=== PATIENT | female | born 1950 | race Caucasian/White ===

== ENCOUNTER 2018-07-06 18:18 | Inpatient (IN) | payer MEDICARE, MEDICAID ==
[2018-07-06] VITALS (11 sets, daily range): BP systolic 141–174; BP diastolic 62–87
[~2018-07-06] VITALS: Ht 170.2 cm; Wt 73.9 kg
--- NOTE | 2018-07-06 18:18 | NUR ---
ARRIVAL EDUARD TO ER 3 VIA WC, STATES THAT SHE WAS DRIVING HOME WITH HER AND THAT SHE BECAME SHORT OF BREATH AND STARTED HAVING RESP FAILURE ON THE WAY HOME. PATIENT CO OF PAIN UPON INSPIRATION. ASSESSMENT COMPLETED, CONNECTED TO ALL MONITORS, EDGE BONDER IN PLACE. MD AT BEDSIDE.
[2018-07-06] MEDS ORDERED: DUONEB 0.5 MG-3 MG/3 ML SOLN IH ONE (18:26)
[2018-07-06] MEDS ORDERED: DUONEB 0.5 MG-3 MG/3 ML SOLN IH STA (18:28)
[2018-07-06] MEDS ORDERED: DECADRON IV STA (18:28)
--- NOTE | 2018-07-06 18:33 | PCM.EKG ---
[facility] Test Date: 2018-07-06 Test Time: 18:26:22 Pat Name: ELIER WAYNE Department: Room: 339 Gender: F Ladle Builder: RT : 1950 Requested By: TREVOR WHITLOCK Order Number: [id number] Reading MD: Trevor Whitlock Measurements Intervals [place] Rate: 127 P: 76 IN: 162 QRS: 91 QRSD: 68 T: 80 QT: 268 QTc: 389 Interpretive Statements Sinus tachycardia Otherwise normal ECG No previous ECG available for comparison Electronically Signed On 07-12-2018 19:37:37 CDT by Trevor Whitlock Please click the below link to view image of tracing.
--- NOTE | 2018-07-06 18:43 | ER.PDOC ---
General Chief Complaint: Requesting Medical Care Stated Complaint: DIFF BREATHING Time seen by MD: 18:23 Source: patient, family Exam Limitations: no limitations History of Present Illness Initial Comments Pt with SOB since 3 days ago, with +cough and prod. sputum. No leg swelling. +chest pain/tightness as well. Severity: moderate Activities at Onset: activity/exertion Prior Episodes/Possible Cause: frequent episodes Modifying Factors: worse with activity; improves with albuterol nebulizer; worse with coughing; improves with oxygen Associated Symptoms: chest pain, cough, edema, fever, leg/calf pain, ligh theadedness, wheezing Prior symptoms/Treatment: Similar symptoms previous; No Recenly Seen Home Meds Reported Medications Metformin Hcl (METFORMIN HCL) 500 Mg Tablet, 500 MG PO BID, TABLET 07/06/18 Oxybutynin Chloride (OXYBUTYNIN CHLORIDE ER) 15 Mg Tab.er.24, 15 MG PO DAILY24 07/06/18 Simvastatin (SIMVASTATIN) 40 Mg Tablet, 40 MG PO DAILY24, TABLET 07/06/18 Losartan Potassium (LOSARTAN POTASSIUM) 25 Mg Tablet, 25 MG PO DAILY24, TABLET 07/06/18 Famotidine (FAMOTIDINE) 40 Mg Tablet, 40 MG PO BID, TABLET 07/06/18 Levothyroxine Sodium (LEVOTHYROXINE SODIUM) 75 Mcg Tablet, 75 MCG PO DAILY24, TABLET 07/06/18 Nifedipine (NIFEDIPINE ER) 30 Mg Tab.er.24, 30 MG PO DAILY24 07/06/18 Clopidogrel Bisulfate (PLAVIX) 75 Mg Tablet, 75 MG PO DAILY24, TABLET 07/06/18 Past Medical History Medical History: COPD Review of Systems Constitutional: other (fatigue) EENTM: no symptoms reported Respiratory: see HPI, cough, shortness of breath, wheezing Cardiovascular: chest pain (tightness, entire chest) Gastrointestinal: no symptoms reported Genitourinary: no symptoms reported Musculoskeletal: no symptoms reported Skin: no symptoms reported All Other Systems: Reviewed and Negative Physical Exam General Appearance: Mild Distress HEENT: PERRL/EOMI, Normal ENT Inspection, TMs Normal, Pharynx Normal Neck: Non-Tender, Full Range of Motion, Supple, Normal Inspection Respiratory: decreased breath sounds (b/l, mild), wheezing (b/l) Cardiovascular: Normal Peripheral Pulses, Tachycardia Rectal: Deferred Extremities: Normal Range of Motion Neurologic/Psychiatric: No Motor/Sensory Deficits, Alert Skin: Normal Color (no cyanosis) Results/Orders Results/Orders Orders - TREVOR WHITLOCK DO Arterial Blood Gas (07/06/18 18:28) Ipratropium/Albuterol Sulfate (Duoneb 0. (07/06/18 18:28) Cbc With Auto Diff (07/06/18 18:28) Comprehensive Metabolic Panel (07/06/18 18:28) Xr Chest 1v (07/06/18 18:28) Ekg-Routine (07/06/18 18:28) Troponin I (07/06/18 18:) Probnp B-Type Lacing String Cutter (07/06/18 18:28) Dexamethasone Sod Phosphate (Decadron) (07/06/18 18:28) Influenza A&B (07/06/18 18:) Blood Culture (07/06/18 18:) Dexamethasone Sod Phosphate (Decadron) (07/06/18 19:09) Cta Chest (07/06/18 19:25) Routine Vital Signs (07/06/18 19:42) Bedrest (07/06/18 19:42) Npo-Dietary Req Nothing By Mo. (07/07/18 Breakfast) Intake & Output (07/06/18 19:42) Magnesium (07/06/18:42) Thyroid Stimulating Horm(Ml) (07/06/18 19:42) Cbc With Auto Diff (07/07/18 05:00) Comprehensive Metabolic Panel (07/07/18 05:00) Albuterol Sulfate (Ventolin) (07/06/18 20:00) Ipratropium [place] (Atrovent) (07/06/18 20:00) Admit Orders (07/06/18 19:42) Vital Signs Date Time Temp Pulse Resp B/P (MAP) Pulse Ox O2 Delivery O2 Flow Rate FiO2 07/06/18 19:13 112 28 95 Bi-pap 45 07/06/18 19:11 102 38 95 07/06/18 19:11 102 38 95 07/06/18 18:56 98.0 102 38 152/66 (94) 60 Room Air 98.0 07/06/18 18:51 98.0 102 28 98.0 07/06/18 18:51 98.4 120 72 60 Room Air 98.4 07/06/18 18:47 121 29 95 S/T 45 Administered Medications Medications (Trade) Dose Ordered Sig/Sravanthi Route PRN Reason Start Time Stop Time Status Last Admin Dose Admin Albuterol/ Ipratropium (Duoneb 0.5 Mg-3 Mg/3 ml Soln) 6 ml STAT STAT IH 07/06/18 18:28 07/06/18 18:33 DC 07/06/18 18:59 6 ML Dexamethasone Sodium Phosphate (Decadron) 8 mg STAT STAT IV 07/06/18 18:28 07/06/18 18:33 DC 07/06/18 19:27 8 MG Laboratory Tests Test 07/06/18 18:28 07/06/18 18:40 07/06/18 18:48 07/06/18 19:26 Blood Gas Sample Site RT RADIAL ARTERY Blood pH 7.350 (7.350-7.450) Blood Gas PCO2 53.7 mmHg (35.0-45.0) H Blood Gas PO2 125.0 mmHg (80.0-100.0) H Blood Gas HCO3 29.0 mmol/L (22.0-26.0) H Blood Gas Base Excess 2.4 mmol/L (-2.0-2.0) H Bernardino Test POSITIVE Arterial Blood Oxygen Saturation 97.8 % (94.0-97.00) H Deoxyhemoglobin 2.2 % (0.0-5.0) Carboxyhemoglobin 0.9 % (0.0-3.9) Methemoglobin 0.1 % (0.00-5.0) Total Hemoglobin 12.9 % (12.0-17.8) Total Oxygen Concentration 17.7 % (13.5-17.5) H Lactic Acid (Blood Gas) 0.7 mmol/1 (0.50-2.0) Blood Gas Temperature 37 Oxygen Delivery Method AEROSOL MASK FiO2 80.0 % (20-101) Bicarbonate 30.6 mmol/L (23-27) H White Blood Count 8.5 10^3/uL (4.5-11.0) Red Blood Count 4.30 10^6/uL (4.00-5.20) Hemoglobin 12.5 g/dL (12.0-15.0) Hematocrit 36.8 % (36.0-46.0) Mean Corpuscular Volume 85.6 fL (78-100) Mean Corpuscular Hemoglobin 29.1 pg (26-34) Mean Corpuscular Hemoglobin Concent 34.0 g/dL (33-37) Red Cell Distribution Width 13.2 % (11.5-14.5) Platelet Count 286 10^3/uL (150-400) Mean Platelet Volume 9.0 fL (7.8-11.0) Neutrophils (%) (Auto) 75.8 % (41.0-85.0) Lymphocytes (%) (Auto) 13.4 % (24.0-44.0) L Monocytes (%) (Auto) 9.8 % (5.0-12.0) Neutrophils # (Auto) 6.4 10^3/uL (1.8-7.7) Lymphocytes # (Auto) 1.1 10^3/uL (1.0-4.8) Monocytes # (Auto) 0.8 10^3/uL (0.3-0.8) Absolute Immature Granulocyte (auto 0.02 10^3 u/L (0-2) Immature Granulocytes % 0.20 % (0.00-0.50) Eosinophils % 0.6 % (0.0-5.0) Basophils % 0.2 % (0.0-0.2) Basophils # 0.0 10^3/uL (0.0-0.1) Eosinophil Count 0.1 10^3/uL (0.0-0.2) Sodium Level 126 mmol/L (132-145) L Potassium Level 4.6 mmol/L (3.6-5.2) Chloride Level 88.0 mmol/L (96-109) L Carbon Dioxide Level 29.1 mmol/L (20.0-32) Anion Gap 13.5 Blood Urea Nitrogen 11 mg/dL (7-18) Creatinine 0.72 mg/dL (0.59-1.40) Estimated GFR () 97.5 (>/=60) BUN/Creatinine Ratio 15.0 Glucose Level 129 mg/dL (70-110) H Calcium Level 9.5 mg/dL (8.4-10.5) Total Bilirubin 0.5 mg/dL (0.2-1.0) Aspartate Amino Transferase (AST) 30 U/L (0-35) Alanine Aminotransferase (ALT) 33 U/L (12-78) Alkaline Phosphatase 117 U/L (50-136) Troponin I < 0.02 ng/mL (0.00-0.05) Pro-B-Type Natriuretic Peptide 170 pg/mL (0-125) H Total Protein 7.8 g/dL (6.4-8.2) Albumin 3.6 g/dL (3.4-5.0) Globulin 4.2 Magnesium Level 1.3 mg/dL (1.8-2.4) L Thyroid Stimulating Hormone (TSH) 1.482 mIU/mL (0.358-3.740) Differential Total Cells Counted 100 #CELLS Segmented Neutrophils 77 % (31-76) H Band Neutrophils % (2-6) Lymphocytes 14 % (25-36) L Monocytes 9 % (3-9) Platelet Morphology NORMAL Progress Progress Pt's ABG non-scidotic, but with elevated pCO2, question chronic compensated resp acidosis. Pt doing better after BiPap and nebs. Still has some wheeze, but air movement is improved. 1943 - Spoke with Dr. Chacko, will admit to ICU and keep on BiPap, he will see her this evening. EKG/XRAY/CT/US EKG: rhythm (sinus tach rate 127), no ST T wave changes EKG Comments: sinus tach, no ST elevation, rate related changes present XRAY: chest Departure Time of Disposition: 19:45 Disposition: 09 ADMITTED INPATIENT Impression: Primary Impression: COPD with exacerbation Additional Impression: Respiratory failure with hypoxia Condition: Stable Referrals: PCP,UNKNOWN (PCP) PRIMARY CARE PROVIDER Duration or Time Spent with Pa: 60 Critical Care Note Total Time (mins): 35 Comments Time for evaluation of respiratory failure, orders, reviewing results and response to treatment. Does not include any separate billable procedures. Problem Qualifiers Additional Impression: Respiratory failure with hypoxia Chronicity: acute Qualified Codes: J96.01 - Acute respiratory failure with hypoxia TREVOR WHITLOCK DO July 06, 2018 18:43
[2018-07-06 18:51] LABS: ABG PCO2 53.7 mmHg (35.0-45.0); BE(B) 2.4 mmol/L (-2.0-2.0)
[2018-07-06 18:54] LABS: BASOPHIL % 0.2 % (0.0-0.2); EOSINOPHIL # 0.1 10^3/uL (0.0-0.2); EOSINOPHIL % 0.6 % (0.0-5.0); HEMOGLOBIN 12.5 g/dL (12.0-15.0); LYMPHOCYTES # 1.1 10^3/uL (1.0-4.8); LYMPHOCYTES % 13.4 % (24.0-44.0); MEAN CELL HGB 29.1 pg (26-34); MEAN CORP VOLUME 85.6 fL (78-100); MONOCYTES # 0.8 10^3/uL (0.3-0.8); MONOCYTES % 9.8 % (5.0-12.0); NEUTROPHIL # 6.4 10^3/uL (1.8-7.7); NEUTROPHILS % 75.8 % (41.0-85.0); PLATELET COUNT 286 10^3/uL (150-400); RED CELL DISTRIBUTION WIDTH 13.2 % (11.5-14.5); WHITE BLOOD CELL 8.5 10^3/uL (4.5-11.0)
[2018-07-06] MEDS ORDERED: DECADRON ONE (19:09)
[2018-07-06 19:17] LABS: ALANINE AMINOTRANSFERASE(ML) 33 U/L (12-78); ALKALINE PHOSPHATASE 117 U/L (50-136); ASPARTATE AMINO TRANSFERASE 30 U/L (0-35); CALCIUM 9.5 mg/dL (8.4-10.5); CARBON DIOXIDE 29.1 mmol/L (20.0-32); GLUCOSE 129 mg/dL (70-110)
--- NOTE | 2018-07-06 19:18 | DIREP ---
PROCEDURE:CHEST 1 VIEW COMPARISON:None. INDICATIONS:dyspnea FINDINGS: LUNGS/PLEURA:Hazy opacity in the right lung base may represent atelectasis or early infiltrate. No effusions. No pneumothorax. VASCULATURE:Unremarkable pulmonary vasculature. CARDIAC:No cardiac silhouette abnormality or cardiomegaly. MEDIASTINUM:No visible mass or adenopathy. BONES:No fracture or visible bony lesion. OTHER:Right chest port. Right pulmonary apex not completely included within the field of view. CONCLUSION: 1. Hazy opacity in the right lung base may represent atelectasis or early infiltrate. Dictated by: Diane Christy MD on 07/06/2018 at 07:16 PM
[2018-07-06 19:26] LABS: SEGMENTED NEUTROPHILS 77 % (31-76)
[2018-07-06 19:27] LABS: LYMPHOCYTE 14 % (25-36); MONOCYTE 9 % (3-9)
--- NOTE | 2018-07-06 19:40 | NUR ---
HOSPITALIST EDP ON PHONE WITH DR. LEW
[2018-07-06] MEDS ORDERED: CLOP75TA52 PO (19:46)
[2018-07-06] MEDS ORDERED: LEVO75TA6 PO (19:46)
[2018-07-06] MEDS ORDERED: NIFE30TA17 PO (19:46)
[2018-07-06] MEDS ORDERED: SIMV40TA3 PO (19:46)
[2018-07-06] MEDS ORDERED: FAMO40TA4 PO (19:46)
[2018-07-06] MEDS ORDERED: LOSA25TA12 PO (19:46)
[2018-07-06] MEDS ORDERED: OXYB15TA PO (19:46)
[2018-07-06] MEDS ORDERED: METF500T17 PO (19:47)
[2018-07-06] MEDS ORDERED: VENTOLIN IH PRN (20:00)
[2018-07-06] MEDS ORDERED: ATROVENT IH PRN (20:00)
[2018-07-06] MEDS ORDERED: LEVAQUIN 150 ML IV ONE ×2 (20:30→20:36)
--- NOTE | 2018-07-06 20:53 | NUR ---
TELEPHONE REPORT RECEIVED FROM MARCOS DILLON. PT STILL IN ER AT THIS TIME.
--- NOTE | 2018-07-06 21:40 | NUR ---
ARRIVAL: PT ARRIVED FROM ER/RADIOLOGY ACCOMPANIED BY RT JOEL WITH WHEELCHAIR. PT ABLE TO STAND UP AND TRANSFER TO BED INDEPENDENTLY. PT ORIENTED TO ICU ENVIRONMENT AND CONNECTED TO HEART MONITOR, NIBP AND PULSE OX BY BRO Camejo RN. PT ON HIGH CON MASK @ 15LPM. PT IS TACHYCARDIC. ALL OTHER VSS AND WNL. PT DENIES PAIN. CALL LIGHT AND TABLE WITHIN REACH. BED IN LOW POSITION, LOCKED, HOB ELEVATED AND SIDE RAILS UP X2. WILL CONTINUE TO MONITOR.
--- NOTE | 2018-07-06 22:30 | NUR ---
JOEL - RT AT BEDSIDE. PT REMOVED FROM HIGH CON MASK AND PLACED ON NASAL CANULA @ 3LPM. O2 SATS - 99%.
--- NOTE | 2018-07-06 22:43 | DIREP ---
PROCEDURE:CTA CHEST and abdomen pelvis venogram COMPARISON:None. INDICATIONS:dyspnea, suspected PE TECHNIQUE:Post contrast axial images through the chest, abdomen, pelvis and thighs with multiplanar MIP/3D reconstructions. FINDINGS: PULMONARY ARTERIES:Patent. LUNGS:Pulmonary nodule in the left lower lobe measuring 1 cm. Nodular opacity in the right middle lobe inferiorly measuring 1 cm, somewhat geographic in shape which may suggest nodule with adjacent atelectasis. Scattered tree-in-bud opacities posteriorly in the right lower lobe, to a lesser degree in the left lower lobe. Additional pulmonary nodule in the right lower lobe measuring 5 mm. Possible nodule in the left upper lobe measuring 4 mm. CARDIAC:Normal size heart and normal pulmonary vascularity. RV:LV ratio (norm <0.9): Not applicable in the absence of pulmonary embolism. THYROID:Normal. THORACIC AORTA:Small calcified and noncalcified atherosclerotic plaques. No aneurysm dissection. MEDIASTINUM:Mildly enlarged subcarinal lymph node measuring 1.2 cm. PLEURA:Normal. BONES:Normal. OTHER:Sigmoid diverticulosis without CT evidence of diverticulitis. CT imaging of the abdomen, pelvis and thighs with equivocal contrast opacification of the veins. If there is clinical suspicion for DVT, please consider ultrasound. CONCLUSION: 1. No pulmonary embolism identified. 2. Tree-in-bud opacities in the lungs, may suggest infective bronchiolitis. 3. Multiple pulmonary nodules. After acute illness has been addressed follow-up chest CT should be considered, within 3 months. Dictated by: Diane Christy MD on 07/06/2018 at 10:31 PM
[2018-07-06] MEDS ORDERED: ZOFRAN IV PRN (23:00)
[2018-07-06] MEDS ORDERED: LACTATED RINGERS 1,000 ML IV SCH (23:00)
[2018-07-06] MEDS ORDERED: RESTORIL PO STA (23:04)
--- NOTE | 2018-07-06 23:16 | PCM.HP ---
History of Present Illness Reason for Visit: Dyspnea x 3-4 days History of Present Illness Patient is a 68 F PMH of COPD, HTN, DM, HLD, Hypothyroidism, hx of TIA, and Hx of Colon cancer presents with acute shortness of breath worsening for 3-4 days. Patient symptoms became so severe she came to ER. In ER, her O2 sats were high 60s to low 70s. Patient was treated with Bipap, Nebs, IV abx, and IV steroids with improvement in symptoms. Patient was admitted to ICU for close monitoring. In ICU, patient is on NC and no longer requiring Bipap for respiratory support. She is feeling much better. Her labs and imaging were reviewed. She denied complaints during my evaluation and was comfortable on O2 support via NC. Patient has been traveling from [place] to [place] and now to [place] to visit family and there was concern for possible PE. Patient CTA is still pending. Patient denies chest pain, fever, chills, nausea, vomiting, or any other concerning symptoms. Past Medical History Cardiac: HTN, Hyperlipidemia, Other (Hx of TIAs) Pulmonary: COPD Heme/Onc: Cancer (Colon) Endocrine: Diabetes, Hypothyroidism Past Surgical History: Arthroscopy (bilateral knees) Past Social History Smoke: Quit Alcohol: none Drugs: None Lives: Alone Travel Hx EBOLA RISK:Travel to/contact w: No Is pt experiencing any Ebola s: No Review of Systems Constitutional: No: Fever, Chills Eyes: No: Conjunctivae inflammation, Eyelid inflammation ENT: No: Nose discharge, Nose congestion Respiratory: Cough, Shortness of breath, SOB with excertion, Wheezing Cardiovascular: No: Chest Pain, Palpitations, Edema Gastrointestinal: No: Nausea, Vomiting, Abdominal Pain Genitourinary: No Hematuria, No Retention Musculoskeletal: No: neck pain, back pain Skin: No: Rash, Lesions, Jaundice, Bruising Neurological: No: Weakness, Numbness, Incoordination, Change in speech, Confusion, Seizures Allergies: Coded Allergies: morphine (Verified Allergy, Intermediate, 07/06/18) Scheduled Clopidogrel Bisulfate (Plavix), 75 MG PO DAILY24, (Reported) Famotidine (Famotidine), 40 MG PO BID, (Reported) Levothyroxine Sodium (Levothyroxine Sodium), 75 MCG PO DAILY24, (Reported) Losartan Potassium (Losartan Potassium), 25 MG PO DAILY24, (Reported) Metformin Hcl (Metformin Hcl), 500 MG PO BID, (Reported) Nifedipine (Nifedipine Er), 30 MG PO DAILY24, (Reported) Oxybutynin Chloride (Oxybutynin Chloride Er), 15 MG PO DAILY24, (Reported) Simvastatin (Simvastatin), 40 MG PO DAILY24, (Reported) VTE VTE Risk Score VTE Risk: Score 0-1 = Low Risk (Aggressive mobilization; early ambulation; no VTE prophylaxis required) Score 2: Moderate Risk (Intermittent/Pneumatic Compression Device OR Lovenox/Heparin/Coumadin) Score 3-4: High Risk (Intermittent/Pneumatic Compression Device AND Lovenox/Heparin/Coumadin) Score > or =5: Highest Risk (Intermittent/Pneumatic Compression Device AND Lovenox/Heparin/Coumadin) Exam Vital Signs Vital Signs Date Time Temp Pulse Resp B/P (MAP) Pulse Ox O2 Delivery O2 Flow Rate FiO2 07/06/18 20:00 74 18 174/78 (110) 97 Bi Pap 07/06/18 19:13 45 07/06/18 18:56 98.0 98.0 General Appearance: Alert, Oriented X3, Cooperative, No acute distress HEENT: Atraumatic, PERRLA, EOMI, Mucous membr. moist/pink Respiratory: Other (diffuse wheezing, decreased aeration) Cardiovascular: Normal S1, Normal S2, No murmurs, Other (tachycardic) Abdominal: Normal bowel sounds, Soft, No tenderness Extremities: No edema, Normal pulses, No tenderness/swelling Skin: No rash, No breakdown, No lesions Neuro: Normal gait, Normal speech, Strength at 5/5 X4 ext, Normal tone, Sensation intact, Cranial nerves 3-12 NL Psych/Mental Status: Mental status NL, Mood NL Assessment/Plan Assessment/Plan Assessment/Plan Patient is a 68 F PMH of COPD, HTN, DM, HLD, Hypothyroidism, hx of TIA, and Hx of Colon cancer presents with acute shortness of breath worsening for 3-4 days. Plan 1. Hypoxic/Hypercapneic Respiratory failure: improved with Bipap, now patient on NC for O2 support. No respiratory distress currently. Cont IV steroids, IV abx, Nebs, O2 support. Pending CTA. 2. Hyponatremia: hx of smoking, hx of colon cancer. Pending CTA. Will give LR @ 75ml/hr overnight. 3. COPD exacerbation: plan as per above. 4. Dyspnea: will trend trops. No acute ischemic changes on EKG, first trop negative x 1. Patient denies chest pain. 5. DM: SSI to cover. Holding Metformin. 6. HTN: cont ARB, holding CCB. Hydralazine IV prn. 7. HLD: cont Statin 8. Hypothyroidism: cont Synthroid 9. PPx: PPI, Lovenox CURLY LEW MD July 06, 2018 23:16
[2018-07-06] MEDS ORDERED: APRESOLINE IV PRN (23:30)
[2018-07-06] MEDS ORDERED: DEXTROSE 50%-WATER SYRINGE IV PRN (23:30)
[2018-07-06] MEDS ORDERED: SYNTHROID PO SCH (23:30)
[2018-07-06] MEDS ORDERED: LOVENOX SQ ONE (23:58)
[2018-07-07] VITALS (53 sets, daily range): BP systolic 92–167; BP diastolic 40–120
[2018-07-07] MEDS: PLAVIX PO SCH (00:04)
[2018-07-07] MEDS: LOVENOX SQ SCH (00:04)
[2018-07-07] MEDS: COZAAR PO SCH (00:05)
--- NOTE | 2018-07-07 00:17 | NUR ---
BSC: PT ASSISTED TO SIDE OF BED AND PT ABLE TO STAND UP AND AMBULATE TO USE BSC INDEPENDENTLY. PT VOIDED 100ML OF YELLOW URINE. PT ASSISTED BACK TO BED. WILL CONTINUE TO MONITOR.
--- NOTE | 2018-07-07 01:35 | NUR ---
CHRONIC COUGH: PT HAS CHRONIC COUGH AND IS HAVING A COUGHING FIT. PT COUGHING UP THIN, YELLOW SPUTUM. PT UNABLE TO CATCH HER BREATH AND REMOVED NASAL CANULA. OXYGEN SATURATION DROPPED TO 80%. PT HOB ELEVATED TO HIGH WALLER TO AID PT BREATHING. ONCE PT ABLE TO CATH HER BREATH NASAL CANULA PLACED BACK ON AND PT OXYGEN SATURATION UP BACK TO 92%. PT REPORTS FEELING BETTER AND LAID BACK DOWN TO GO TO SLEEP. BED IN LOW POSITION, LOCKED, AND SIDE RAILS UP X2. CALL LIGHT AND TABLE WITHIN REACH.
[2018-07-07] MEDS: DUONEB 0.5 MG-3 MG/3 ML SOLN IH SCH ×4 (02:50→20:45)
[2018-07-07] MEDS: SOLU-MEDROL IV SCH ×3 (06:07→21:23)
[2018-07-07 06:34] LABS: BASOPHIL % 0.1 % (0.0-0.2); HEMOGLOBIN 11.9 g/dL (12.0-15.0); LYMPHOCYTES # 0.9 10^3/uL (1.0-4.8); LYMPHOCYTES % 12.4 % (24.0-44.0); MEAN CELL HGB 29.2 pg (26-34); MEAN CELL HGB CONCENTRATION 33.6 g/dL (33-37); MEAN CORP VOLUME 86.8 fL (78-100); MONOCYTES # 0.4 10^3/uL (0.3-0.8); MONOCYTES % 5.4 % (5.0-12.0); NEUTROPHIL # 5.8 10^3/uL (1.8-7.7); NEUTROPHILS % 81.3 % (41.0-85.0); RED CELL DISTRIBUTION WIDTH 13.1 % (11.5-14.5); WHITE BLOOD CELL 7.1 10^3/uL (4.5-11.0)
[2018-07-07 06:48] LABS: CALCIUM 9.3 mg/dL (8.4-10.5); CARBON DIOXIDE 31.6 mmol/L (20.0-32)
--- NOTE | 2018-07-07 06:50 | NUR ---
REPORT TO ONCOMING SHIFT. PT CARE RELINQUISHED
--- NOTE | 2018-07-07 06:51 | NUR ---
RECEIVED REPORT FROM Thalia ROMERO RN. [facility].
[2018-07-07] MEDS: HUMALOG SQ SCH ×4 (07:30→21:28)
--- NOTE | 2018-07-07 08:20 | PRM.PN ---
Subjective Subjective Date: July 07, 2018 Time: 08:00 Subjective Patient feeling much better. Labs, imaging reviewed. Likely transfer to medical floor today. No respiratory distress. VTE VTE Risk Total Score: >5 VTE Risk Score VTE Risk: Score 0-1 = Low Risk (Aggressive mobilization; early ambulation; no VTE prophylaxis required) Score 2: Moderate Risk (Intermittent/Pneumatic Compression Device OR Lovenox/Heparin/Coumadin) Score 3-4: High Risk (Intermittent/Pneumatic Compression Device AND Lovenox/Heparin/Coumadin) Score > or =5: Highest Risk (Intermittent/Pneumatic Compression Device AND Lovenox/Heparin/Coumadin) Review of Systems Allergies: Coded Allergies: morphine (Verified Allergy, Intermediate, 07/06/18) Scheduled Clopidogrel Bisulfate (Plavix), 75 MG PO DAILY24, (Reported) Famotidine (Famotidine), 40 MG PO BID, (Reported) Levothyroxine Sodium (Levothyroxine Sodium), 75 MCG PO DAILY24, (Reported) Losartan Potassium (Losartan Potassium), 25 MG PO DAILY24, (Reported) Metformin Hcl (Metformin Hcl), 500 MG PO BID, (Reported) Nifedipine (Nifedipine Er), 30 MG PO DAILY24, (Reported) Oxybutynin Chloride (Oxybutynin Chloride Er), 15 MG PO DAILY24, (Reported) Simvastatin (Simvastatin), 40 MG PO DAILY24, (Reported) Objective Vitals and I/O Vital Sign - Last 24 Hours 07/06/18 07/06/18 07/06/18 07/06/18 18:47 18:51 18:51 18:56 Temp 98.4 98.0 98.0 98.4 98.0 98.0 Pulse 121 120 102 102 Resp 29 72 28 38 B/P (MAP) 152/66 (94) Pulse Ox 95 60 60 O2 Delivery S/T Room Air Room Air FiO2 45 07/06/18 07/06/18 07/06/18 07/06/18 19:00 19:11 19:11 19:13 Pulse 104 102 102 112 Resp 20 38 38 28 B/P (MAP) 159/68 (98) Pulse Ox 98 95 95 95 O2 Delivery Bi Pap Bi-pap FiO2 45 07/06/18 07/06/18 07/06/18 07/06/18 20:00 21:00 22:16 22:30 Temp 97.8 97.8 Pulse 74 82 Resp 18 24 B/P (MAP) 174/78 (110) 162/82 (108) 157/84 (108) Pulse Ox 97 97 98 O2 Delivery Bi Pap Bi Pap Nasal Cannula O2 Flow Rate 3.00 07/06/18 07/06/18 07/06/18 07/06/18 22:31 22:46 23:01 23:16 Pulse 104 101 102 103 Resp 19 25 38 28 B/P (MAP) 147/71 (96) 150/62 (91) 150/72 (98) 144/87 (106) Pulse Ox 98 98 99 96 07/06/18 07/06/18 07/06/18 07/06/18 23:31 23:32 23:33 23:33 Pulse 101 74 Resp 18 18 B/P (MAP) 141/70 (93) Pulse Ox 95 97 97 O2 Delivery Nasal Cannula S/T O2 Flow Rate 3.00 07/06/18 07/07/18 07/07/18 07/07/18 23:46 00:02 00:05 00:16 Temp 98.2 98.2 Pulse 104 112 101 Resp 19 26 B/P (MAP) 164/81 (108) 167/61 (96) 138/64 144/120 (128) Pulse Ox 96 93 94 07/07/18 07/07/18 07/07/18 07/07/18 00:29 00:30 00:32 00:46 Temp 98.0 Pulse 74 104 105 99 Resp 18 39 23 32 B/P (MAP) 138/64 (88) 149/66 (93) Pulse Ox 97 93 95 96 O2 Delivery Room Air 07/07/18 07/07/18 07/07/18 07/07/18 00:55 01:01 01:16 01:31 Pulse 98 97 94 Resp 27 B/P (MAP) 156/80 (105) 151/73 (99) 134/54 (80) Pulse Ox 95 94 94 O2 Delivery Nasal Cannula O2 Flow Rate 3.00 07/07/18 07/07/18 07/07/18 07/07/18 01:46 01:47 02:01 02:16 Pulse 92 91 100 Resp 35 22 B/P (MAP) 132/63 (86) 129/61 (83) 149/67 (94) Pulse Ox 96 91 94 O2 Delivery Nasal Cannula O2 Flow Rate 3.00 07/07/18 07/07/18 07/07/18 07/07/18 02:31 02:46 02:51 03:01 Pulse 95 96 90 95 Resp 30 34 25 26 B/P (MAP) 130/63 (85) 143/72 (95) 142/74 (96) Pulse Ox 95 93 90 94 07/07/18 07/07/18 07/07/18 07/07/18 03:02 03:16 03:31 03:46 Pulse 90 91 90 94 Resp 25 27 26 34 B/P (MAP) 143/61 (88) 139/70 (93) 141/71 (94) Pulse Ox 90 94 97 95 07/07/18 07/07/18 07/07/18 07/07/18 04:01 04:16 04:31 04:46 Pulse 90 99 92 89 Resp 29 36 24 24 B/P (MAP) 131/63 (85) 144/70 (94) 140/66 (90) 137/70 (92) Pulse Ox 95 94 95 96 07/07/18 07/07/18 07/07/18 07/07/18 05:01 05:31 05:40 05:47 Temp 98.2 98.2 Pulse 91 97 92 Resp 25 32 B/P (MAP) 134/68 (90) 92/67 (75) 137/71 (93) Pulse Ox 96 92 95 O2 Delivery Nasal Cannula O2 Flow Rate 3.00 07/07/18 07/07/18 07/07/18 07/07/18 06:01 06:16 06:31 06:46 Pulse 88 91 94 100 Resp 26 26 22 24 B/P (MAP) 143/63 (89) 136/68 (90) 149/63 (91) 152/83 (106) Pulse Ox 99 99 99 96 07/07/18 07:01 Pulse 91 Resp 37 B/P (MAP) 133/74 (93) Pulse Ox 97 General: Alert, Oriented X3, Cooperative, No acute distress HEENT: Atraumatic, PERRLA, EOMI, Mucous membr. moist/pink Neck: Supple, No JVD Lungs: Other (diffuse wheezing, decreased aeration) Heart: Normal S1, Normal S2, No murmurs, Other (tachycardic) Abdomen: Normal bowel sounds, Soft, No tenderness Extremities: No edema, Normal pulses, No tenderness/swelling Skin: No rashes, No breakdown, No significant lesion Neuro: Normal gait, Normal speech, Strength at 5/5 X4 ext, Normal tone, Sensation intact, Cranial nerves 3-12 NL Psych/Mental Status: Mental status NL, Mood NL All Results(Lab/Rad) Laboratory Tests Test 07/06/18 18:28 07/06/18 18:40 07/06/18 18:48 07/06/18 19:26 Blood Gas Sample Site RT RADIAL ARTERY Blood Gas pH 7.350 Blood Gas PCO2 53.7 mmHg Blood Gas PO2 125.0 mmHg Blood Gas HCO3 29.0 mmol/L Blood Gas Base Excess 2.4 mmol/L Bernardino Test POSITIVE Arterial Blood Oxygen Saturation 97.8 % Deoxyhemoglobin 2.2 % Carboxyhemoglobin 0.9 % Methemoglobin 0.1 % Total Hemoglobin 12.9 % Total Oxygen Concentration 17.7 % Lactic Acid (Blood Gas) 0.7 mmol/1 Blood Gas Temperature 37 Oxygen Delivery Method (LAB) AEROSOL MASK FiO2 80.0 % Bicarbonate 30.6 mmol/L White Blood Count 8.5 10^3/uL Red Blood Count 4.30 10^6/uL Hemoglobin 12.5 g/dL Hematocrit 36.8 % Mean Corpuscular Volume 85.6 fL Mean Corpuscular Hemoglobin 29.1 pg Mean Corpuscular Hemoglobin Concent 34.0 g/dL Red Cell Distribution Width 13.2 % Platelet Count 286 10^3/uL Mean Platelet Volume 9.0 fL Neutrophils (%) (Auto) 75.8 % Lymphocytes (%) (Auto) 13.4 % Monocytes (%) (Auto) 9.8 % Neutrophils # (Auto) 6.4 10^3/uL Lymphocytes # (Auto) 1.1 10^3/uL Monocytes # (Auto) 0.8 10^3/uL Absolute Immature Granulocyte (auto 0.02 10^3 u/L Immature Granulocytes % 0.20 % Eosinophils % 0.6 % Basophils % 0.2 % Basophils # 0.0 10^3/uL Eosinophil Count 0.1 10^3/uL Sodium Level 126 mmol/L Potassium Level 4.6 mmol/L Chloride Level 88.0 mmol/L Carbon Dioxide Level 29.1 mmol/L Anion Gap 13.5 Blood Urea Nitrogen 11 mg/dL Creatinine 0.72 mg/dL Estimated GFR () 97.5 BUN/Creatinine Ratio 15.0 Glucose Level 129 mg/dL Calcium Level 9.5 mg/dL Total Bilirubin 0.5 mg/dL Aspartate Amino Transf (AST/SGOT) 30 U/L Alanine Aminotransferase (ALT/SGPT) 33 U/L Alkaline Phosphatase 117 U/L Troponin I < 0.02 ng/mL Pro-B-Type Natriuretic Peptide 170 pg/mL Total Protein 7.8 g/dL Albumin 3.6 g/dL Globulin 4.2 Magnesium Level 1.3 mg/dL Thyroid Stimulating Hormone (TSH) 1.482 mIU/mL Differential Total Cells Counted 100 #CELLS Segmented Neutrophils 77 % Band Neutrophils % Lymphocytes 14 % Monocytes 9 % Platelet Morphology NORMAL Test 07/07/18 00:35 07/07/18 06:10 07/07/18 06:30 Troponin I < 0.02 ng/mL < 0.02 ng/mL Bedside Glucose 131 White Blood Count 7.1 10^3/uL Red Blood Count 4.08 10^6/uL Hemoglobin 11.9 g/dL Hematocrit 35.4 % Mean Corpuscular Volume 86.8 fL Mean Corpuscular Hemoglobin 29.2 pg Mean Corpuscular Hemoglobin Concent 33.6 g/dL Red Cell Distribution Width 13.1 % Platelet Count 275 10^3/uL Mean Platelet Volume 9.0 fL Neutrophils (%) (Auto) 81.3 % Lymphocytes (%) (Auto) 12.4 % Monocytes (%) (Auto) 5.4 % Neutrophils # (Auto) 5.8 10^3/uL Lymphocytes # (Auto) 0.9 10^3/uL Monocytes # (Auto) 0.4 10^3/uL Absolute Immature Granulocyte (auto 0.06 10^3 u/L Immature Granulocytes % 0.80 % Eosinophils % 0.0 % Basophils % 0.1 % Basophils # 0.0 10^3/uL Eosinophil Count 0.0 10^3/uL Sodium Level 129 mmol/L Potassium Level 5.0 mmol/L Chloride Level 91.0 mmol/L Carbon Dioxide Level 31.6 mmol/L Anion Gap 11.4 Blood Urea Nitrogen 10 mg/dL Creatinine 0.76 mg/dL Estimated GFR () 91.6 BUN/Creatinine Ratio 13.0 Glucose Level 138 mg/dL Calcium Level 9.3 mg/dL Total Bilirubin 0.4 mg/dL Aspartate Amino Transf (AST/SGOT) 25 U/L Alanine Aminotransferase (ALT/SGPT) 31 U/L Alkaline Phosphatase 114 U/L Total Protein 7.4 g/dL Albumin 3.2 g/dL Globulin 4.2 Current Medications Medications (Trade) Dose Ordered Sig/Sravanthi Route PRN Reason Start Time Stop Time Status Last Admin Dose Admin Albuterol/ Ipratropium (Duoneb 0.5 Mg-3 Mg/3 ml Soln) 3 ml STK-MED ONCE IH 07/06/18 18:26 07/06/18 18:27 DC Albuterol/ Ipratropium (Duoneb 0.5 Mg-3 Mg/3 ml Soln) 6 ml STAT STAT IH 07/06/18 18:28 07/06/18 18:33 DC 07/06/18 18:59 Dexamethasone Sodium Phosphate (Decadron) 8 mg STAT STAT IV 07/06/18 18:28 07/06/18 18:33 DC 07/06/18 19:27 Dexamethasone Sodium Phosphate (Decadron) 4 mg STK-MED ONCE .ROUTE 07/06/18 19:09 07/06/18 19:11 DC Albuterol Sulfate (Ventolin) 2.5 mg RTQ2 PRN IH SHORTNESS OF BREATH 07/06/18 20:00 08/05/18 19:59 Ipratropium [place] (Atrovent) 0.5 mg RTQ2 PRN IH SHORTNESS OF BREATH 07/06/18 20:00 08/05/18 19:59 Levofloxacin/ Dextrose 150 ml @ 100 mls/hr Q24HRS ONCE IV 07/06/18 20:30 07/06/18 21:59 DC 07/06/18 20:43 Levofloxacin/ Dextrose 150 ml @ ud STK-MED ONCE IV 07/06/18 20:36 07/06/18 20:38 DC Ondansetron HCl (Zofran) 4 mg Q4H PRN IV NAUSEA / VOMITING 07/06/18 23:00 08/05/18 22:59 Pantoprazole Sodium (Protonix) 40 mg DAILY PO 07/07/18 09:00 08/06/18 08:59 Ceftriaxone Sodium 1000 mg/ Sodium Chloride 100 ml @ 100 mls/hr Q24HRS IV 07/07/18 09:00 08/06/18 08:59 Azithromycin 500 mg/Sodium Chloride 250 ml @ 175 mls/hr Q24HRS IV 07/07/18 08:00 08/06/18 07:59 Methylprednisolone Sodium Succinate (Solu-Medrol) 40 mg Q8HR IV 07/07/18 06:00 08/06/18 05:59 07/07/18 06:07 Albuterol/ Ipratropium (Duoneb 0.5 Mg-3 Mg/3 ml Soln) 3 ml RTQ6 IH 07/07/18 03:00 08/06/18 02:59 07/07/18 02:50 Temazepam (Restoril) 15 mg STAT STAT PO 07/06/18 23:04 07/06/18 23:07 DC 07/07/18 00:04 Clopidogrel Bisulfate (Plavix) 75 mg DAILY24 PO 07/06/18 23:30 08/05/18 23:29 07/07/18 00:04 Levothyroxine Sodium (Synthroid) 75 mcg DAILY24 PO 07/06/18 23:30 07/07/18 07:39 DC 07/07/18 00:04 Losartan Potassium (Cozaar) 25 mg DAILY24 PO 07/06/18 23:30 08/05/18 23:29 07/07/18 00:05 Atorvastatin Calcium (Lipitor) 20 mg HS PO 07/07/18 21:00 08/06/18 20:59 Insulin Human Lispro (Humalog) Give when food is in front... ACHS SQ 07/07/18 07:30 08/06/18 07:29 Dextrose (Dextrose 50%-Water Syringe) 25 ml STAT PRN IV HYPOGLYCEMIA 07/06/18 23:30 08/05/18 23:29 Hydralazine HCl (Apresoline) 10 mg Q4HR PRN IV HYPERTENSION 07/06/18 23:30 08/05/18 23:29 Enoxaparin Sodium (Lovenox) 40 mg Q24HRS SQ 07/06/18 23:30 08/05/18 23:29 07/07/18 00:04 Enoxaparin Sodium (Lovenox) 40 mg STK-MED ONCE SQ 07/06/18 23:58 07/07/18 00:00 DC Levothyroxine Sodium (Synthroid) 75 mcg ACB PO 07/08/18 06:30 08/05/18 23:29 Magnesium Sulfate 50 ml @ 50 mls/hr OT ONCE IV 07/07/18 08:30 07/07/18 09:29 UNV Sodium Chloride 1,000 ml @ 100 mls/hr Q10H ONCE IV 07/07/18 08:30 07/07/18 18:29 UNV Course Sepsis Screening Results: Posi: POSITIVE Sepsis Qualifier/Stage: SEPSIS RISK Duration or Total Time Spent w: 60 Vitals & review Data Vital Sign - Last 24 Hours 07/06/18 07/06/18 07/06/18 07/06/18 18:47 18:51 18:51 18:56 Temp 98.4 98.0 98.0 98.4 98.0 98.0 Pulse 121 120 102 102 Resp 29 72 28 38 B/P (MAP) 152/66 (94) Pulse Ox 95 60 60 O2 Delivery S/T Room Air Room Air FiO2 45 07/06/18 07/06/18 07/06/18 07/06/18 19:00 19:11 19:11 19:13 Pulse 104 102 102 112 Resp 20 38 38 28 B/P (MAP) 159/68 (98) Pulse Ox 98 95 95 95 O2 Delivery Bi Pap Bi-pap FiO2 45 07/06/18 07/06/18 07/06/18 07/06/18 20:00 21:00 22:16 22:30 Temp 97.8 97.8 Pulse 74 82 Resp 18 24 B/P (MAP) 174/78 (110) 162/82 (108) 157/84 (108) Pulse Ox 97 97 98 O2 Delivery Bi Pap Bi Pap Nasal Cannula O2 Flow Rate 3.00 07/06/18 07/06/18 07/06/18 07/06/18 22:31 22:46 23:01 23:16 Pulse 104 101 102 103 Resp 19 25 38 28 B/P (MAP) 147/71 (96) 150/62 (91) 150/72 (98) 144/87 (106) Pulse Ox 98 98 99 96 07/06/18 07/06/18 07/06/18 07/06/18 23:31 23:32 23:33 23:33 Pulse 101 74 Resp 18 18 B/P (MAP) 141/70 (93) Pulse Ox 95 97 97 O2 Delivery Nasal Cannula S/T O2 Flow Rate 3.00 07/06/18 07/07/18 07/07/18 07/07/18 23:46 00:02 00:05 00:16 Temp 98.2 98.2 Pulse 104 112 101 Resp 26 B/P (MAP) 164/81 (108) 167/61 (96) 138/64 144/120 (128) Pulse Ox 96 93 94 07/07/18 07/07/18 07/07/18 07/07/18 00:29 00:30 00:32 00:46 Temp 98.0 Pulse 74 104 105 99 Resp 18 39 23 32 B/P (MAP) 138/64 (88) 149/66 (93) Pulse Ox 97 93 95 96 O2 Delivery Room Air 07/07/18 07/07/18 07/07/18 07/07/18 00:55 01:01 01:16 01:31 Pulse 98 97 94 Resp B/P (MAP) 156/80 (105) 151/73 (99) 134/54 (80) Pulse Ox 95 94 94 O2 Delivery Nasal Cannula O2 Flow Rate 3.00 07/07/18 07/07/18 07/07/18 07/07/18 01:46 01:47 02:01 02:16 Pulse 92 91 100 Resp 35 22 B/P (MAP) 132/63 (86) 129/61 (83) 149/67 (94) Pulse Ox 96 91 94 O2 Delivery Nasal Cannula O2 Flow Rate 3.00 07/07/18 07/07/18 07/07/18 07/07/18 02:31 02:46 02:51 03:01 Pulse 95 96 90 95 Resp 30 34 25 26 B/P (MAP) 130/63 (85) 143/72 (95) 142/74 (96) Pulse Ox 95 93 90 94 07/07/18 07/07/18 07/07/18 07/07/18 03:02 03:16 03:31 03:46 Pulse 90 91 90 94 Resp 34 B/P (MAP) 143/61 (88) 139/70 (93) 141/71 (94) Pulse Ox 90 94 97 95 07/07/18 07/07/18 07/07/18 07/07/18 04:01 04:16 04:31 04:46 Pulse 90 99 92 89 Resp 29 36 24 24 B/P (MAP) 131/63 (85) 144/70 (94) 140/66 (90) 137/70 (92) Pulse Ox 95 94 95 96 07/07/18 07/07/18 07/07/18 07/07/18 05:01 05:31 05:40 05:47 Temp 98.2 98.2 Pulse 91 97 92 Resp 25 32 B/P (MAP) 134/68 (90) 92/67 (75) 137/71 (93) Pulse Ox 96 92 95 O2 Delivery Nasal Cannula O2 Flow Rate 3.00 07/07/18 07/07/18 07/07/18 07/07/18 06:01 06:16 06:31 06:46 Pulse 88 91 94 100 Resp 26 22 24 B/P (MAP) 143/63 (89) 136/68 (90) 149/63 (91) 152/83 (106) Pulse Ox 99 99 99 96 07/07/18 07:01 Pulse 91 Resp 37 B/P (MAP) 133/74 (93) Pulse Ox 97 Laboratory Tests Test 07/06/18 00:00 07/06/18 18:28 07/06/18 18:40 07/06/18 18:48 Influenza Type A Antigen NEGATIVE Influenza B Immunofluorescence NEGATIVE Blood Gas Sample Site RT RADIAL ARTERY Blood Gas pH 7.350 Blood Gas PCO2 53.7 mmHg Blood Gas PO2 125.0 mmHg Blood Gas HCO3 29.0 mmol/L Blood Gas Base Excess 2.4 mmol/L Bernardino Test POSITIVE Arterial Blood Oxygen Saturation 97.8 % Deoxyhemoglobin 2.2 % Carboxyhemoglobin 0.9 % Methemoglobin 0.1 % Total Hemoglobin 12.9 % Total Oxygen Concentration 17.7 % Lactic Acid (Blood Gas) 0.7 mmol/1 Blood Gas Temperature 37 Oxygen Delivery Method (LAB) AEROSOL MASK FiO2 80.0 % Bicarbonate 30.6 mmol/L White Blood Count 8.5 10^3/uL Red Blood Count 4.30 10^6/uL Hemoglobin 12.5 g/dL Hematocrit 36.8 % Mean Corpuscular Volume 85.6 fL Mean Corpuscular Hemoglobin 29.1 pg Mean Corpuscular Hemoglobin Concent 34.0 g/dL Red Cell Distribution Width 13.2 % Platelet Count 286 10^3/uL Mean Platelet Volume 9.0 fL Neutrophils (%) (Auto) 75.8 % Lymphocytes (%) (Auto) 13.4 % Monocytes (%) (Auto) 9.8 % Neutrophils # (Auto) 6.4 10^3/uL Lymphocytes # (Auto) 1.1 10^3/uL Monocytes # (Auto) 0.8 10^3/uL Absolute Immature Granulocyte (auto 0.02 10^3 u/L Immature Granulocytes % 0.20 % Eosinophils % 0.6 % Basophils % 0.2 % Basophils # 0.0 10^3/uL Eosinophil Count 0.1 10^3/uL Sodium Level 126 mmol/L Potassium Level 4.6 mmol/L Chloride Level 88.0 mmol/L Carbon Dioxide Level 29.1 mmol/L Anion Gap 13.5 Blood Urea Nitrogen 11 mg/dL Creatinine 0.72 mg/dL Estimated GFR () 97.5 BUN/Creatinine Ratio 15.0 Glucose Level 129 mg/dL Calcium Level 9.5 mg/dL Total Bilirubin 0.5 mg/dL Aspartate Amino Transf (AST/SGOT) 30 U/L Alanine Aminotransferase (ALT/SGPT) 33 U/L Alkaline Phosphatase 117 U/L Troponin I < 0.02 ng/mL Pro-B-Type Natriuretic Peptide 170 pg/mL Total Protein 7.8 g/dL Albumin 3.6 g/dL Globulin 4.2 Magnesium Level 1.3 mg/dL Thyroid Stimulating Hormone (TSH) 1.482 mIU/mL Test 07/06/18 19:26 07/07/18 00:35 07/07/18 06:10 07/07/18 06:30 Differential Total Cells Counted 100 #CELLS Segmented Neutrophils 77 % Band Neutrophils % Lymphocytes 14 % Monocytes 9 % Platelet Morphology NORMAL Troponin I < 0.02 ng/mL < 0.02 ng/mL Bedside Glucose 131 White Blood Count 7.1 10^3/uL Red Blood Count 4.08 10^6/uL Hemoglobin 11.9 g/dL Hematocrit 35.4 % Mean Corpuscular Volume 86.8 fL Mean Corpuscular Hemoglobin 29.2 pg Mean Corpuscular Hemoglobin Concent 33.6 g/dL Red Cell Distribution Width 13.1 % Platelet Count 275 10^3/uL Mean Platelet Volume 9.0 fL Neutrophils (%) (Auto) 81.3 % Lymphocytes (%) (Auto) 12.4 % Monocytes (%) (Auto) 5.4 % Neutrophils # (Auto) 5.8 10^3/uL Lymphocytes # (Auto) 0.9 10^3/uL Monocytes # (Auto) 0.4 10^3/uL Absolute Immature Granulocyte (auto 0.06 10^3 u/L Immature Granulocytes % 0.80 % Eosinophils % 0.0 % Basophils % 0.1 % Basophils # 0.0 10^3/uL Eosinophil Count 0.0 10^3/uL Sodium Level 129 mmol/L Potassium Level 5.0 mmol/L Chloride Level 91.0 mmol/L Carbon Dioxide Level 31.6 mmol/L Anion Gap 11.4 Blood Urea Nitrogen 10 mg/dL Creatinine 0.76 mg/dL Estimated GFR () 91.6 BUN/Creatinine Ratio 13.0 Glucose Level 138 mg/dL Calcium Level 9.3 mg/dL Total Bilirubin 0.4 mg/dL Aspartate Amino Transf (AST/SGOT) 25 U/L Alanine Aminotransferase (ALT/SGPT) 31 U/L Alkaline Phosphatase 114 U/L Total Protein 7.4 g/dL Albumin 3.2 g/dL Globulin 4.2 Current Medications Medications (Trade) Dose Ordered Sig/Sravanthi PRN Reason Start Time Stop Time Status Last Admin Albuterol Sulfate (Ventolin) 2.5 mg RTQ2 PRN SHORTNESS OF BREATH 07/06/18 20:00 08/05/18 19:59 Albuterol/ Ipratropium (Duoneb 0.5 Mg-3 Mg/3 ml Soln) 3 ml RTQ6 07/07/18 03:00 08/06/18 02:59 07/07/18 02:50 Atorvastatin Calcium (Lipitor) 20 mg HS 07/07/18 21:00 08/06/18 20:59 Azithromycin 500 mg/Sodium Chloride 250 ml @ 175 mls/hr Q24HRS 07/07/18 08:00 08/06/18 07:59 Ceftriaxone Sodium 1000 mg/ Sodium Chloride 100 ml @ 100 mls/hr Q24HRS 07/07/18 09:00 08/06/18 08:59 Clopidogrel Bisulfate (Plavix) 75 mg DAILY24 07/06/18 23:30 08/05/18 23:29 07/07/18 00:04 Dextrose (Dextrose 50%-Water Syringe) 25 ml STAT PRN HYPOGLYCEMIA 07/06/18 23:30 08/05/18 23:29 Enoxaparin Sodium (Lovenox) 40 mg Q24HRS 07/06/18 23:30 08/05/18 23:29 07/07/18 00:04 Hydralazine HCl (Apresoline) 10 mg Q4HR PRN HYPERTENSION 07/06/18 23:30 08/05/18 23:29 Insulin Human Lispro (Humalog) Give when food is in front... ACHS 07/07/18 07:30 08/06/18 07:29 Ipratropium [place] (Atrovent) 0.5 mg RTQ2 PRN SHORTNESS OF BREATH 07/06/18 20:00 08/05/18 19:59 Levothyroxine Sodium (Synthroid) 75 mcg ACB 07/08/18 06:30 08/05/18 23:29 Losartan Potassium (Cozaar) 25 mg DAILY24 07/06/18 23:30 08/05/18 23:29 07/07/18 00:05 Methylprednisolone Sodium Succinate (Solu-Medrol) 40 mg Q8HR 07/07/18 06:00 08/06/18 05:59 07/07/18 06:07 Ondansetron HCl (Zofran) 4 mg Q4H PRN NAUSEA / VOMITING 07/06/18 23:00 08/05/18 22:59 Pantoprazole Sodium (Protonix) 40 mg DAILY 07/07/18 09:00 08/06/18 08:59 Sepsis Infection Criteria Pres: Suspected Infection LEVEL 1 SEPSIS INFECTION CRITE: ABX Therapy, Cough/Shortness of Breath LEVEL 2-SIRS (LIST ALL THAT AP: RR>20/min Cardiovascular Evidence: Not Assessed or None Hematologic Evidence: None/Not assessed Hepatic Evidence: None/Not assessed Metabolic Evidence: None/Not assessed Neurological Evidence: None/Not assessed Respiratory Evidence: Acute Resp failure, Need for O2 to keep>90%, O2 SAT<90room air Renal Evidence: None/Not assessed O2 Sat by Pulse Oximetry: 97 Oxygen Flow Rate: 3.00 Assessment/Plan Assessment/Plan Assessment/Plan 1. Hypoxic/Hypercapneic Respiratory failure: Patient much improved. CTA shows Infective Bronchiolitis. Cont IV steroids, IV abx, Nebs, O2 support. 2. Hyponatremia: CTA positive for lung nodules that are being monitored by [facility] outpatient. LR changed to NS. 3. COPD exacerbation: plan as per above. 4. Dyspnea: improved, cont treatment as above. Trops negative x 3. 5. DM: SSI to cover. Holding Metformin. 6. HTN: cont ARB, holding CCB. Hydralazine IV prn. 7. HLD: cont Statin 8. Hypothyroidism: cont Synthroid 9. PPx: PPI, Lovenox CURLY LEW MD July 07, 2018 08:20
[2018-07-07] MEDS: ZITHROMAX 500 MG in NS 250ML 250 ML IV SCH (08:28)
[2018-07-07] MEDS ORDERED: NS 1000ML 1,000 ML IV ONE (08:30)
[2018-07-07] MEDS ORDERED: MAGNESIUM SULFATE 50 ML IV ONE (08:30)
--- NOTE | 2018-07-07 08:30 | NUR ---
DR. LEW @ BEDSIDE ASSESSING PATIENT. NEW ORDERS RECEIVED TO TRANSFER TO MED SURG FLOOR.
[2018-07-07] MEDS: PROTONIX PO SCH (09:50)
--- NOTE | 2018-07-07 10:00 | NUR ---
BACK MASSAGE ADMINISTERED. PATIENT COMPLAINING OF KNOTS TO NECK AND SHOULDERS.
--- NOTE | 2018-07-07 10:02 | NUR ---
DISCHARGE PLAN CASE MANAGEMENT VISTED WITH PATIENT CONCERNING DISCHARGE PLAN AND NEEDS. IS HERE FROM [place] [facility], ARRIVED YESTERDAY. LIVES IN [place] AT HOME WITH . DENIES NEED FOR DME AND OUTPATIENT SERVICES. REFUSAL LETTER SIGNED AND PLACED ON CHART. PCP-DR. WESLEY IN [place]. HAS FINANCIAL ABILITY TO PAY FOR MEDICATIONS UPON DISCHARGE IF NEEDED. DISCHARGE GOAL IS TO DISCHARGE HOME WITH AND CONTINUE SELF CARE. CM WILL CONTINUE TO FOLLOW FOR DISCHARGE NEEDS.
[2018-07-07] MEDS: ROCEPHIN 1,000 MG in NS 100ML 100 ML IV SCH (10:36)
[2018-07-07] MEDS ORDERED: SOLU-MEDROL ONE (14:23)
--- NOTE | 2018-07-07 14:24 | NUR ---
TRANSFERRED TO MED SURG FLOOR VIA WHEELCHAIR ON 2L/MIN NC. REPORT GIVEN TO Aileen VOSS RN. RELINQUISHED CARE.
--- NOTE | 2018-07-07 20:30 | NUR ---
Medication Patient requested a sleeping pill and Tylenol for a headache. Contacted Dr. Chacko, received order for Restoril 15 mg po one time and Tylenol 650 mg po q 6 hours PRN.
[2018-07-07] MEDS ORDERED: TYLENOL PO PRN (21:00)
[2018-07-07] MEDS ORDERED: RESTORIL PO ONE (21:00)
[2018-07-07] MEDS: LIPITOR PO SCH (21:23)
[2018-07-08] MEDS: PLAVIX PO SCH ×2 (00:16→23:53)
[2018-07-08] MEDS: COZAAR PO SCH ×2 (00:17→23:53)
[2018-07-08] MEDS: LOVENOX SQ SCH ×2 (00:17→23:53)
[2018-07-08 00:54] VITALS: BP 138/56
[2018-07-08] MEDS: DUONEB 0.5 MG-3 MG/3 ML SOLN IH SCH ×4 (02:37→20:52)
[2018-07-08 04:14] VITALS: BP 124/63
[2018-07-08 05:12] LABS: BASOPHIL % 0.1 % (0.0-0.2); HEMOGLOBIN 11.2 g/dL (12.0-15.0); LYMPHOCYTES # 0.8 10^3/uL (1.0-4.8); LYMPHOCYTES % 8.1 % (24.0-44.0); MEAN CELL HGB CONCENTRATION 32.7 g/dL (33-37); MEAN CORP VOLUME 88.6 fL (78-100); MEAN PLATELET VOLUME 8.9 fL (7.8-11.0); MONOCYTES # 0.5 10^3/uL (0.3-0.8); MONOCYTES % 4.9 % (5.0-12.0); NEUTROPHILS % 86.9 % (41.0-85.0); PLATELET COUNT 298 10^3/uL (150-400); RED CELL DISTRIBUTION WIDTH 13.3 % (11.5-14.5); WHITE BLOOD CELL 10.3 10^3/uL (4.5-11.0)
[2018-07-08 05:14] LABS: CALCIUM 8.8 mg/dL (8.4-10.5); CARBON DIOXIDE 31.9 mmol/L (20.0-32)
[2018-07-08] MEDS: SYNTHROID PO SCH (06:08)
[2018-07-08] MEDS: SOLU-MEDROL IV SCH ×3 (06:08→21:04)
[2018-07-08 07:30] VITALS: BP 150/77
[2018-07-08] MEDS ORDERED: SPS PO STA (08:21)
--- NOTE | 2018-07-08 08:36 | PRM.PN ---
Subjective Subjective Date: July 08, 2018 Time: 08:20 Subjective Mild improvement, patient likely to need one more day. Will complete O2 challenge later today. K elevated on AM labs, Kayexalate ordered and patient started on Telemetry. No palpitations. VTE VTE Risk Total Score: >5 VTE Risk Score VTE Risk: Score 0-1 = Low Risk (Aggressive mobilization; early ambulation; no VTE prophylaxis required) Score 2: Moderate Risk (Intermittent/Pneumatic Compression Device OR Lovenox/Heparin/Coumadin) Score 3-4: High Risk (Intermittent/Pneumatic Compression Device AND Lovenox/Heparin/Coumadin) Score > or =5: Highest Risk (Intermittent/Pneumatic Compression Device AND Lovenox/Heparin/Coumadin) Review of Systems Allergies: Coded Allergies: morphine (Verified Allergy, Intermediate, 07/06/18) Scheduled Clopidogrel Bisulfate (Plavix), 75 MG PO DAILY24, (Reported) Famotidine (Famotidine), 40 MG PO BID, (Reported) Levothyroxine Sodium (Levothyroxine Sodium), 75 MCG PO DAILY24, (Reported) Losartan Potassium (Losartan Potassium), 25 MG PO DAILY24, (Reported) Metformin Hcl (Metformin Hcl), 500 MG PO BID, (Reported) Nifedipine (Nifedipine Er), 30 MG PO DAILY24, (Reported) Oxybutynin Chloride (Oxybutynin Chloride Er), 15 MG PO DAILY24, (Reported) Simvastatin (Simvastatin), 40 MG PO DAILY24, (Reported) Objective Vitals and I/O Vital Sign - Last 24 Hours 07/06/18 07/06/18 07/06/18 07/06/18 18:47 18:51 18:51 18:56 Temp 98.4 98.0 98.0 98.4 98.0 98.0 Pulse 121 120 102 102 Resp 29 72 28 38 B/P (MAP) 152/66 (94) Pulse Ox 95 60 60 O2 Delivery S/T Room Air Room Air FiO2 45 07/06/18 07/06/18 07/06/18 07/06/18 19:00 19:11 19:11 19:13 Pulse 104 102 102 112 Resp 20 38 38 28 B/P (MAP) 159/68 (98) Pulse Ox 98 95 95 95 O2 Delivery Bi Pap Bi-pap FiO2 45 07/06/18 07/06/18 07/06/1822/19 20:00 21:00 22:16 22:30 Temp 97.8 97.8 Pulse 74 82 Resp 18 24 B/P (MAP) 174/78 (110) 162/82 (108) 157/84 (108) Pulse Ox 97 97 98 O2 Delivery Bi Pap Bi Pap Nasal Cannula O2 Flow Rate 3.00 07/06/18 07/06/18 07/06/18 07/06/18 22:31 22:46 23:01 23:16 Pulse 104 101 102 103 Resp 38 28 B/P (MAP) 147/71 (96) 150/62 (91) 150/72 (98) 144/87 (106) Pulse Ox 98 98 99 96 07/06/18 07/06/18 07/06/18 07/06/18 23:31 23:32 23:33 23:33 Pulse 101 74 Resp 18 18 B/P (MAP) 141/70 (93) Pulse Ox 95 97 97 O2 Delivery Nasal Cannula S/T O2 Flow Rate 3.00 07/06/18 07/07/18 07/07/18 07/07/18 23:46 00:02 00:05 00:16 Temp 98.2 98.2 Pulse 104 112 101 Resp 26 B/P (MAP) 164/81 (108) 167/61 (96) 138/64 144/120 (128) Pulse Ox 96 93 94 07/07/18 07/07/18 07/07/18 07/07/18 00:29 00:30 00:32 00:46 Temp 98.0 Pulse 74 104 105 99 Resp 39 23 32 B/P (MAP) 138/64 (88) 149/66 (93) Pulse Ox 97 93 95 96 O2 Delivery Room Air 07/07/18 07/07/18 07/07/18 07/07/18 00:55 01:01 01:16 01:31 Pulse 98 97 94 Resp 27 B/P (MAP) 156/80 (105) 151/73 (99) 134/54 (80) Pulse Ox 95 94 94 O2 Delivery Nasal Cannula O2 Flow Rate 3.00 07/07/18 07/07/18 07/07/18 07/07/18 01:46 01:47 02:01 02:16 Pulse 92 91 100 Resp 35 22 B/P (MAP) 132/63 (86) 129/61 (83) 149/67 (94) Pulse Ox 96 91 94 O2 Delivery Nasal Cannula O2 Flow Rate 3.00 07/07/18 07/07/18 07/07/18 07/07/18 02:31 02:46 02:51 03:01 Pulse 95 96 90 95 Resp 30 34 25 26 B/P (MAP) 130/63 (85) 143/72 (95) 142/74 (96) Pulse Ox 95 93 90 94 07/07/18 07/07/18 07/07/18 07/07/18 03:02 03:16 03:31 03:46 Pulse 90 91 90 94 Resp 25 27 26 34 B/P (MAP) 143/61 (88) 139/70 (93) 141/71 (94) Pulse Ox 90 94 97 95 07/07/18 07/07/18 07/07/18 07/07/18 04:01 04:16 04:31 04:46 Pulse 90 99 92 89 Resp 29 36 24 24 B/P (MAP) 131/63 (85) 144/70 (94) 140/66 (90) 137/70 (92) Pulse Ox 95 94 95 96 07/07/18 07/07/18 07/07/18 07/07/18 05:01 05:31 05:40 05:47 Temp 98.2 98.2 Pulse 91 97 92 Resp 25 32 B/P (MAP) 134/68 (90) 92/67 (75) 137/71 (93) Pulse Ox 96 92 95 O2 Delivery Nasal Cannula O2 Flow Rate 3.00 07/07/18 07/07/18 07/07/18 07/07/18 06:01 06:16 06:31 06:46 Pulse 88 91 94 100 Resp 26 26 22 24 B/P (MAP) 143/63 (89) 136/68 (90) 149/63 (91) 152/83 (106) Pulse Ox 99 99 99 96 07/07/18 07:01 Pulse 91 Resp 37 B/P (MAP) 133/74 (93) Pulse Ox 97 General: Alert, Oriented X3, Cooperative, No acute distress HEENT: Atraumatic, PERRLA, EOMI, Mucous membr. moist/pink Neck: Supple, No JVD Lungs: Other (diffuse wheezing, decreased aeration.) Heart: Normal S1, Normal S2, No murmurs, Other (tachycardic) Abdomen: Normal bowel sounds, Soft, No tenderness Extremities: No edema, Normal pulses, No tenderness/swelling Skin: No rashes, No breakdown, No significant lesion Neuro: Normal gait, Normal speech, Strength at 5/5 X4 ext, Normal tone, Sensation intact, Cranial nerves 3-12 NL Psych/Mental Status: Mental status NL, Mood NL All Results(Lab/Rad) Laboratory Tests Test 07/06/18 18:28 07/06/18 18:40 07/06/18 18:48 07/06/18 19:26 Blood Gas Sample Site RT RADIAL ARTERY Blood Gas pH 7.350 Blood Gas PCO2 53.7 mmHg Blood Gas PO2 125.0 mmHg Blood Gas HCO3 29.0 mmol/L Blood Gas Base Excess 2.4 mmol/L Bernardino Test POSITIVE Arterial Blood Oxygen Saturation 97.8 % Deoxyhemoglobin 2.2 % Carboxyhemoglobin 0.9 % Methemoglobin 0.1 % Total Hemoglobin 12.9 % Total Oxygen Concentration 17.7 % Lactic Acid (Blood Gas) 0.7 mmol/1 Blood Gas Temperature 37 Oxygen Delivery Method (LAB) AEROSOL MASK FiO2 80.0 % Bicarbonate 30.6 mmol/L White Blood Count 8.5 10^3/uL Red Blood Count 4.30 10^6/uL Hemoglobin 12.5 g/dL Hematocrit 36.8 % Mean Corpuscular Volume 85.6 fL Mean Corpuscular Hemoglobin 29.1 pg Mean Corpuscular Hemoglobin Concent 34.0 g/dL Red Cell Distribution Width 13.2 % Platelet Count 286 10^3/uL Mean Platelet Volume 9.0 fL Neutrophils (%) (Auto) 75.8 % Lymphocytes (%) (Auto) 13.4 % Monocytes (%) (Auto) 9.8 % Neutrophils # (Auto) 6.4 10^3/uL Lymphocytes # (Auto) 1.1 10^3/uL Monocytes # (Auto) 0.8 10^3/uL Absolute Immature Granulocyte (auto 0.02 10^3 u/L Immature Granulocytes % 0.20 % Eosinophils % 0.6 % Basophils % 0.2 % Basophils # 0.0 10^3/uL Eosinophil Count 0.1 10^3/uL Sodium Level 126 mmol/L Potassium Level 4.6 mmol/L Chloride Level 88.0 mmol/L Carbon Dioxide Level 29.1 mmol/L Anion Gap 13.5 Blood Urea Nitrogen 11 mg/dL Creatinine 0.72 mg/dL Estimated GFR () 97.5 BUN/Creatinine Ratio 15.0 Glucose Level 129 mg/dL Calcium Level 9.5 mg/dL Total Bilirubin 0.5 mg/dL Aspartate Amino Transf (AST/SGOT) 30 U/L Alanine Aminotransferase (ALT/SGPT) 33 U/L Alkaline Phosphatase 117 U/L Troponin I < 0.02 ng/mL Pro-B-Type Natriuretic Peptide 170 pg/mL Total Protein 7.8 g/dL Albumin 3.6 g/dL Globulin 4.2 Magnesium Level 1.3 mg/dL Thyroid Stimulating Hormone (TSH) 1.482 mIU/mL Differential Total Cells Counted 100 #CELLS Segmented Neutrophils 77 % Band Neutrophils % Lymphocytes 14 % Monocytes 9 % Platelet Morphology NORMAL Test 07/07/18 00:35 07/07/18 06:10 07/07/18 06:30 Troponin I < 0.02 ng/mL < 0.02 ng/mL Bedside Glucose 131 White Blood Count 7.1 10^3/uL Red Blood Count 4.08 10^6/uL Hemoglobin 11.9 g/dL Hematocrit 35.4 % Mean Corpuscular Volume 86.8 fL Mean Corpuscular Hemoglobin 29.2 pg Mean Corpuscular Hemoglobin Concent 33.6 g/dL Red Cell Distribution Width 13.1 % Platelet Count 275 10^3/uL Mean Platelet Volume 9.0 fL Neutrophils (%) (Auto) 81.3 % Lymphocytes (%) (Auto) 12.4 % Monocytes (%) (Auto) 5.4 % Neutrophils # (Auto) 5.8 10^3/uL Lymphocytes # (Auto) 0.9 10^3/uL Monocytes # (Auto) 0.4 10^3/uL Absolute Immature Granulocyte (auto 0.06 10^3 u/L Immature Granulocytes % 0.80 % Eosinophils % 0.0 % Basophils % 0.1 % Basophils # 0.0 10^3/uL Eosinophil Count 0.0 10^3/uL Sodium Level 129 mmol/L Potassium Level 5.0 mmol/L Chloride Level 91.0 mmol/L Carbon Dioxide Level 31.6 mmol/L Anion Gap 11.4 Blood Urea Nitrogen 10 mg/dL Creatinine 0.76 mg/dL Estimated GFR () 91.6 BUN/Creatinine Ratio 13.0 Glucose Level 138 mg/dL Calcium Level 9.3 mg/dL Total Bilirubin 0.4 mg/dL Aspartate Amino Transf (AST/SGOT) 25 U/L Alanine Aminotransferase (ALT/SGPT) 31 U/L Alkaline Phosphatase 114 U/L Total Protein 7.4 g/dL Albumin 3.2 g/dL Globulin 4.2 Current Medications Medications (Trade) Dose Ordered Sig/Sravanthi Route PRN Reason Start Time Stop Time Status Last Admin Dose Admin Albuterol/ Ipratropium (Duoneb 0.5 Mg-3 Mg/3 ml Soln) 3 ml STK-MED ONCE IH 07/06/18 18:26 07/06/18 18:27 DC Albuterol/ Ipratropium (Duoneb 0.5 Mg-3 Mg/3 ml Soln) 6 ml STAT STAT IH 07/06/18 18:28 07/06/18 18:33 DC 07/06/18 18:59 Dexamethasone Sodium Phosphate (Decadron) 8 mg STAT STAT IV 07/06/18 18:28 07/06/18 18:33 DC 07/06/18 19:27 Dexamethasone Sodium Phosphate (Decadron) 4 mg STK-MED ONCE .ROUTE 07/06/18 19:09 07/06/18 19:11 DC Albuterol Sulfate (Ventolin) 2.5 mg RTQ2 PRN IH SHORTNESS OF BREATH 07/06/18 20:00 08/05/18 19:59 Ipratropium [place] (Atrovent) 0.5 mg RTQ2 PRN IH SHORTNESS OF BREATH 07/06/18 20:00 08/05/18 19:59 Levofloxacin/ Dextrose 150 ml @ 100 mls/hr Q24HRS ONCE IV 07/06/18 20:30 07/06/18 21:59 DC 07/06/18 20:43 Levofloxacin/ Dextrose 150 ml @ ud STK-MED ONCE IV 07/06/18 20:36 07/06/18 20:38 DC Ondansetron HCl (Zofran) 4 mg Q4H PRN IV NAUSEA / VOMITING 07/06/18 23:00 08/05/18 22:59 Pantoprazole Sodium (Protonix) 40 mg DAILY PO 07/07/18 09:00 08/06/18 08:59 Ceftriaxone Sodium 1000 mg/ Sodium Chloride 100 ml @ 100 mls/hr Q24HRS IV 07/07/18 09:00 08/06/18 08:59 Azithromycin 500 mg/Sodium Chloride 250 ml @ 175 mls/hr Q24HRS IV 07/07/18 08:00 08/06/18 07:59 Methylprednisolone Sodium Succinate (Solu-Medrol) 40 mg Q8HR IV 07/07/18 06:00 08/06/18 05:59 07/07/18 06:07 Albuterol/ Ipratropium (Duoneb 0.5 Mg-3 Mg/3 ml Soln) 3 ml RTQ6 IH 07/07/18 03:00 08/06/18 02:59 07/07/18 02:50 Temazepam (Restoril) 15 mg STAT STAT PO 07/06/18 23:04 07/06/18 23:07 DC 07/07/18 00:04 Clopidogrel Bisulfate (Plavix) 75 mg DAILY24 PO 07/06/18 23:30 08/05/18 23:29 07/07/18 00:04 Levothyroxine Sodium (Synthroid) 75 mcg DAILY24 PO 07/06/18 23:30 07/07/18 07:39 DC 07/07/18 00:04 Losartan Potassium (Cozaar) 25 mg DAILY24 PO 07/06/18 23:30 08/05/18 23:29 07/07/18 00:05 Atorvastatin Calcium (Lipitor) 20 mg HS PO 07/07/18 21:00 08/06/18 20:59 Insulin Human Lispro (Humalog) Give when food is in front... ACHS SQ 07/07/18 07:30 08/06/18 07:29 Dextrose (Dextrose 50%-Water Syringe) 25 ml STAT PRN IV HYPOGLYCEMIA 07/06/18 23:30 08/05/18 23:29 Hydralazine HCl (Apresoline) 10 mg Q4HR PRN IV HYPERTENSION 07/06/18 23:30 08/05/18 23:29 Enoxaparin Sodium (Lovenox) 40 mg Q24HRS SQ 07/06/18 23:30 08/05/18 23:29 07/07/18 00:04 Enoxaparin Sodium (Lovenox) 40 mg STK-MED ONCE SQ 07/06/18 23:58 07/07/18 00:00 DC Levothyroxine Sodium (Synthroid) 75 mcg ACB PO 07/08/18 06:30 08/05/18 23:29 Magnesium Sulfate 50 ml @ 50 mls/hr OT ONCE IV 07/07/18 08:30 07/07/18 09:29 UNV Sodium Chloride 1,000 ml @ 100 mls/hr Q10H ONCE IV 07/07/18 08:30 07/07/18 18:29 UNV Course Sepsis Screening Results: Posi: POSITIVE Sepsis Qualifier/Stage: SEPSIS RISK Duration or Total Time Spent w: 60 Vitals & review Data Vital Sign - Last 24 Hours 07/06/18 07/06/18 07/06/18 07/06/18 18:47 18:51 18:51 18:56 Temp 98.4 98.0 98.0 98.4 98.0 98.0 Pulse 121 120 102 102 Resp 29 72 28 38 B/P (MAP) 152/66 (94) Pulse Ox 95 60 60 O2 Delivery S/T Room Air Room Air FiO2 45 07/06/18 07/06/18 07/06/18 07/06/18 19:00 19:11 19:11 19:13 Pulse 104 102 102 112 Resp 20 38 38 28 B/P (MAP) 159/68 (98) Pulse Ox 98 95 95 95 O2 Delivery Bi Pap Bi-pap FiO2 45 07/06/18 07/06/18 07/06/18 07/06/18 20:00 21:00 22:16 22:30 Temp 97.8 97.8 Pulse 74 82 Resp 18 24 B/P (MAP) 174/78 (110) 162/82 (108) 157/84 (108) Pulse Ox 97 97 98 O2 Delivery Bi Pap Bi Pap Nasal Cannula O2 Flow Rate 3.00 07/06/18 07/06/18 07/06/18 07/06/18 22:31 22:46 23:01 23:16 Pulse 104 101 102 103 Resp 19 25 38 28 B/P (MAP) 147/71 (96) 150/62 (91) 150/72 (98) 144/87 (106) Pulse Ox 98 98 99 96 07/06/18 07/06/18 07/06/18 07/06/18 23:31 23:32 23:33 23:33 Pulse 101 74 Resp 18 18 B/P (MAP) 141/70 (93) Pulse Ox 95 97 97 O2 Delivery Nasal Cannula S/T O2 Flow Rate 3.00 07/06/18 07/07/18 07/07/18 07/07/18 23:46 00:02 00:05 00:16 Temp 98.2 98.2 Pulse 104 112 101 Resp 26 B/P (MAP) 164/81 (108) 167/61 (96) 138/64 144/120 (128) Pulse Ox 96 93 94 07/07/18 07/07/18 07/07/18 07/07/18 00:29 00:30 00:32 00:46 Temp 98.0 Pulse 74 104 105 99 Resp 18 39 23 32 B/P (MAP) 138/64 (88) 149/66 (93) Pulse Ox 97 93 95 96 O2 Delivery Room Air 07/07/18 07/07/18 07/07/18 07/07/18 00:55 01:01 01:16 01:31 Pulse 98 97 94 Resp 27 B/P (MAP) 156/80 (105) 151/73 (99) 134/54 (80) Pulse Ox 95 94 94 O2 Delivery Nasal Cannula O2 Flow Rate 3.00 07/07/18 07/07/18 07/07/18 07/07/18 01:46 01:47 02:01 02:16 Pulse 92 91 100 Resp 28 35 22 B/P (MAP) 132/63 (86) 129/61 (83) 149/67 (94) Pulse Ox 96 91 94 O2 Delivery Nasal Cannula O2 Flow Rate 3.00 07/07/18 07/07/18 07/07/18 07/07/18 02:31 02:46 02:51 03:01 Pulse 95 96 90 95 Resp 30 34 25 26 B/P (MAP) 130/63 (85) 143/72 (95) 142/74 (96) Pulse Ox 95 93 90 94 07/07/18 07/07/18 07/07/18 07/07/18 03:02 03:16 03:31 03:46 Pulse 90 91 90 94 Resp 34 B/P (MAP) 143/61 (88) 139/70 (93) 141/71 (94) Pulse Ox 90 94 97 95 07/07/18 07/07/18 07/07/18 07/07/18 04:01 04:16 04:31 04:46 Pulse 90 99 92 89 Resp 29 36 24 24 B/P (MAP) 131/63 (85) 144/70 (94) 140/66 (90) 137/70 (92) Pulse Ox 95 94 95 96 07/07/18 07/07/18 07/07/18 07/07/18 05:01 05:31 05:40 05:47 Temp 98.2 98.2 Pulse 91 97 92 Resp 25 32 B/P (MAP) 134/68 (90) 92/67 (75) 137/71 (93) Pulse Ox 96 92 95 O2 Delivery Nasal Cannula O2 Flow Rate 3.00 07/07/18 07/07/18 07/07/18 07/07/18 06:01 06:16 06:31 06:46 Pulse 88 91 94 100 Resp 26 26 22 24 B/P (MAP) 143/63 (89) 136/68 (90) 149/63 (91) 152/83 (106) Pulse Ox 99 99 99 96 07/07/18 07:01 Pulse 91 Resp 37 B/P (MAP) 133/74 (93) Pulse Ox 97 Laboratory Tests Test 07/06/18 00:00 07/06/18 18:28 07/06/18 18:40 07/06/18 18:48 Influenza Type A Antigen NEGATIVE Influenza B Immunofluorescence NEGATIVE Blood Gas Sample Site RT RADIAL ARTERY Blood Gas pH 7.350 Blood Gas PCO2 53.7 mmHg Blood Gas PO2 125.0 mmHg Blood Gas HCO3 29.0 mmol/L Blood Gas Base Excess 2.4 mmol/L Bernardino Test POSITIVE Arterial Blood Oxygen Saturation 97.8 % Deoxyhemoglobin 2.2 % Carboxyhemoglobin 0.9 % Methemoglobin 0.1 % Total Hemoglobin 12.9 % Total Oxygen Concentration 17.7 % Lactic Acid (Blood Gas) 0.7 mmol/1 Blood Gas Temperature 37 Oxygen Delivery Method (LAB) AEROSOL MASK FiO2 80.0 % Bicarbonate 30.6 mmol/L White Blood Count 8.5 10^3/uL Red Blood Count 4.30 10^6/uL Hemoglobin 12.5 g/dL Hematocrit 36.8 % Mean Corpuscular Volume 85.6 fL Mean Corpuscular Hemoglobin 29.1 pg Mean Corpuscular Hemoglobin Concent 34.0 g/dL Red Cell Distribution Width 13.2 % Platelet Count 286 10^3/uL Mean Platelet Volume 9.0 fL Neutrophils (%) (Auto) 75.8 % Lymphocytes (%) (Auto) 13.4 % Monocytes (%) (Auto) 9.8 % Neutrophils # (Auto) 6.4 10^3/uL Lymphocytes # (Auto) 1.1 10^3/uL Monocytes # (Auto) 0.8 10^3/uL Absolute Immature Granulocyte (auto 0.02 10^3 u/L Immature Granulocytes % 0.20 % Eosinophils % 0.6 % Basophils % 0.2 % Basophils # 0.0 10^3/uL Eosinophil Count 0.1 10^3/uL Sodium Level 126 mmol/L Potassium Level 4.6 mmol/L Chloride Level 88.0 mmol/L Carbon Dioxide Level 29.1 mmol/L Anion Gap 13.5 Blood Urea Nitrogen 11 mg/dL Creatinine 0.72 mg/dL Estimated GFR () 97.5 BUN/Creatinine Ratio 15.0 Glucose Level 129 mg/dL Calcium Level 9.5 mg/dL Total Bilirubin 0.5 mg/dL Aspartate Amino Transf (AST/SGOT) 30 U/L Alanine Aminotransferase (ALT/SGPT) 33 U/L Alkaline Phosphatase 117 U/L Troponin I < 0.02 ng/mL Pro-B-Type Natriuretic Peptide 170 pg/mL Total Protein 7.8 g/dL Albumin 3.6 g/dL Globulin 4.2 Magnesium Level 1.3 mg/dL Thyroid Stimulating Hormone (TSH) 1.482 mIU/mL Test 07/06/18 19:26 07/07/18 00:35 07/07/18 06:10 07/07/18 06:30 Differential Total Cells Counted 100 #CELLS Segmented Neutrophils 77 % Band Neutrophils % Lymphocytes 14 % Monocytes 9 % Platelet Morphology NORMAL Troponin I < 0.02 ng/mL < 0.02 ng/mL Bedside Glucose 131 White Blood Count 7.1 10^3/uL Red Blood Count 4.08 10^6/uL Hemoglobin 11.9 g/dL Hematocrit 35.4 % Mean Corpuscular Volume 86.8 fL Mean Corpuscular Hemoglobin 29.2 pg Mean Corpuscular Hemoglobin Concent 33.6 g/dL Red Cell Distribution Width 13.1 % Platelet Count 275 10^3/uL Mean Platelet Volume 9.0 fL Neutrophils (%) (Auto) 81.3 % Lymphocytes (%) (Auto) 12.4 % Monocytes (%) (Auto) 5.4 % Neutrophils # (Auto) 5.8 10^3/uL Lymphocytes # (Auto) 0.9 10^3/uL Monocytes # (Auto) 0.4 10^3/uL Absolute Immature Granulocyte (auto 0.06 10^3 u/L Immature Granulocytes % 0.80 % Eosinophils % 0.0 % Basophils % 0.1 % Basophils # 0.0 10^3/uL Eosinophil Count 0.0 10^3/uL Sodium Level 129 mmol/L Potassium Level 5.0 mmol/L Chloride Level 91.0 mmol/L Carbon Dioxide Level 31.6 mmol/L Anion Gap 11.4 Blood Urea Nitrogen 10 mg/dL Creatinine 0.76 mg/dL Estimated GFR () 91.6 BUN/Creatinine Ratio 13.0 Glucose Level 138 mg/dL Calcium Level 9.3 mg/dL Total Bilirubin 0.4 mg/dL Aspartate Amino Transf (AST/SGOT) 25 U/L Alanine Aminotransferase (ALT/SGPT) 31 U/L Alkaline Phosphatase 114 U/L Total Protein 7.4 g/dL Albumin 3.2 g/dL Globulin 4.2 Current Medications Medications (Trade) Dose Ordered Sig/Sravanthi PRN Reason Start Time Stop Time Status Last Admin Albuterol Sulfate (Ventolin) 2.5 mg RTQ2 PRN SHORTNESS OF BREATH 07/06/18 20:00 08/05/18 19:59 Albuterol/ Ipratropium (Duoneb 0.5 Mg-3 Mg/3 ml Soln) 3 ml RTQ6 07/07/18 03:00 08/06/18 02:59 07/07/18 02:50 Atorvastatin Calcium (Lipitor) 20 mg HS 07/07/18 21:00 08/06/18 20:59 Azithromycin 500 mg/Sodium Chloride 250 ml @ 175 mls/hr Q24HRS 07/07/18 08:00 08/06/18 07:59 Ceftriaxone Sodium 1000 mg/ Sodium Chloride 100 ml @ 100 mls/hr Q24HRS 07/07/18 09:00 08/06/18 08:59 Clopidogrel Bisulfate (Plavix) 75 mg DAILY24 07/06/18 23:30 08/05/18 23:29 07/07/18 00:04 Dextrose (Dextrose 50%-Water Syringe) 25 ml STAT PRN HYPOGLYCEMIA 07/06/18 23:30 08/05/18 23:29 Enoxaparin Sodium (Lovenox) 40 mg Q24HRS 07/06/18 23:30 08/05/18 23:29 07/07/18 00:04 Hydralazine HCl (Apresoline) 10 mg Q4HR PRN HYPERTENSION 07/06/18 23:30 08/05/18 23:29 Insulin Human Lispro (Humalog) Give when food is in front... ACHS 07/07/18 07:30 08/06/18 07:29 Ipratropium [place] (Atrovent) 0.5 mg RTQ2 PRN SHORTNESS OF BREATH 07/06/18 20:00 08/05/18 19:59 Levothyroxine Sodium (Synthroid) 75 mcg ACB 07/08/18 06:30 08/05/18 23:29 Losartan Potassium (Cozaar) 25 mg DAILY24 07/06/18 23:30 08/05/18 23:29 07/07/18 00:05 Methylprednisolone Sodium Succinate (Solu-Medrol) 40 mg Q8HR 07/07/18 06:00 08/06/18 05:59 07/07/18 06:07 Ondansetron HCl (Zofran) 4 mg Q4H PRN NAUSEA / VOMITING 07/06/18 23:00 08/05/18 22:59 Pantoprazole Sodium (Protonix) 40 mg DAILY 07/07/18 09:00 08/06/18 08:59 Sepsis Infection Criteria Pres: Suspected Infection LEVEL 1 SEPSIS INFECTION CRITE: ABX Therapy, Cough/Shortness of Breath LEVEL 2-SIRS (LIST ALL THAT AP: None/Not assessed Cardiovascular Evidence: Not Assessed or None Hematologic Evidence: None/Not assessed Hepatic Evidence: None/Not assessed Metabolic Evidence: None/Not assessed Neurological Evidence: None/Not assessed Respiratory Evidence: Acute Resp failure, Need for O2 to keep>90%, O2 SAT<90room air Renal Evidence: None/Not assessed O2 Sat by Pulse Oximetry: 96 Oxygen Flow Rate: 2.00 Assessment/Plan Assessment/Plan Assessment/Plan 1. Hypoxic/Hypercapneic Respiratory failure: Patient much improved. Cont IV steroids, IV abx, nebs, O2 support. O2 challenge today. 2. Hyponatremia: cont IVF, patient has outpatient f/u with Super[facility] [employer] [facility] to monitor lung nodules. 3. COPD exacerbation: plan as per above. 4. Dyspnea: improved, cont treatment as above. Trops negative x 3. 5. DM: SSI to cover. Holding Metformin. 6. HTN: cont ARB, holding CCB. Hydralazine IV prn. 7. HLD: cont Statin 8. Hypothyroidism: cont Synthroid 9. PPx: PPI, Lovenox 10. Hyperkalemia: Pending repeat metabolic panel, Kayexalate ordered. Will keep patient on Telemetry. She is already receiving Insulin, albuterol. CURLY LEW MD July 08, 2018 08:36
[2018-07-08] MEDS: PROTONIX PO SCH (08:43)
[2018-07-08] MEDS: HUMALOG SQ SCH ×4 (08:43→21:00)
[2018-07-08] MEDS: NS 1000ML 1,000 ML IV SCH ×3 (08:43→21:06)
[2018-07-08] MEDS: ZITHROMAX 500 MG in NS 250ML 250 ML IV SCH (08:44)
[2018-07-08] MEDS: ROCEPHIN 1,000 MG in NS 100ML 100 ML IV SCH (09:55)
--- NOTE | 2018-07-08 11:00 | NUR ---
OXYGEN CHALLENGE TEST DID O2 CHALLENGE TEST WITHOUT O2 VIA NASAL CANNULA IN ROOM AIR FOR 15 MINUTES , Pt AT BED, AWAKE, O2SAT IS 81 % IN ROOM AIR. PLACED BACK IN O2 VIA NASAL CANNULA T 2 LIT, O2 SAT IS 96%.
[2018-07-08 11:09] LABS: CARBON DIOXIDE 29.2 mmol/L (20.0-32)
[2018-07-08 11:34] VITALS: BP 139/63
--- NOTE | 2018-07-08 15:17 | NUR ---
HOME O2: SS NOTIFIED OF PT'S NEED FOR HOME O2 UPON DISCHARGE. SW VISITED WITH PT REGARDING ABOVE AND LET PT SHE WOULD HAVE TO SEE WHAT AGENCIES HAVE SISTER FACILITIES IN [place] CLOSE TO WHERE SHE LIVES. VERBAL CONSENT GIVEN FOR SW TO REACH OUT TO LOCAL AGENCY. SW REACHED OUT TO MAT WITH [facility] WHOM STATED THEY HAVE AN AGENCY ABOUT 10 MILES FROM HER. THEY WOULD RUN IT AND SEE WHAT HER INSURANCE WOULD COVER. SW FAXED OVER ORDER WELL SUPPORTING CLINICAL. PT IS CURRENTLY PENDING HOME O2 THROUGH [facility]. SW TO CONTINUE TO FOLLOW.
--- NOTE | 2018-07-08 15:57 | NUR ---
RIAN: ANITRA WITH [employer] CALLED AND STATE UNFORTUNATELY THEY ARE OUT OF NETWORK WITH PT'S INSURANCE IT IS A MEDICARE REPLACEMENT PLAN AND THEN SHE HAS MEDICAID SECONDARY. ANITRA STATED [facility] IS IN HER NETWORK AND THEY HAVE AN OFFICE IN [place], BUT HE COULD PROVIDE A MONTH SUPPLY OF OXYGEN AT THE [place] RATE OF $120 FOR A MONTH AND PT COULD RETURN IN WHEN SHE GOT HOME AND GOT RE-QUALIFIED THROUGH HER PCP. SW LET ANITRA KNOW SHE WOULD VISIT WITH PT AND SEE IF THAT WOULD BE DOABLE. JULIO REACHED OUT TO [facility] IN [place] WHOM STATED "SORRY WE DON'T SERVICE THAT AREA AND WOULD NOT BE ABLE TO BRING OXYGEN TO TRAPPE. IT IS OUT OF SERVICE RANGE". JULIO VISITED WITH PT REGARDING ABOVE AND PT STATED "WELL I WILL JUST HAVE TO PAY OR HE WON'T LET ME GO HOME. I JUST DON'T KNOW MY GRANDSON'S ADDRESS WHERE I'LL BE STAYING WHEN I GET OUT OF HERE". SW LET PT KNOW THEY WOULD PROVIDE A PORTABLE TO GO HOME AND WHEN SHE GOT TO HER GRANDSON'S ADDRESS SHE COULD CALL THEM AND THEY WOULD BRING THE CONCENTRATOR. PT AGREEABLE TO ABOVE PLAN. JULIO CALLED ANITRA AND LET HIM KNOW PT WOULD PRIVATE PAY FOR THE MONTH. ANITRA STATED HE WOULD BE UP SHORTLY TO BRING A PORTABLE. NO FURTHER SS OR DISCHARGE PLANS NOTED AT THIS TIME.
[2018-07-08 16:05] VITALS: BP 137/61
--- NOTE | 2018-07-08 17:36 | NUR ---
STATUS Pt COUGHING AND REQUESTED FOR COUGH MEDICINE AND Pt ALSO REQUESTED FOR SLEEP MEDICINE AT [facility] "LAST NIGHT THEY GIVE ME MEDICINE THEY REALLY HELPED ME SLEEP", NOTIFIED DR APARICIO VIA TELEPHONE RECEIVED AN ORDER FOR TESSELON 100 MG PO TID PRN AND TEMAZEPAM 15 MG PO QHS.
[2018-07-08] MEDS: TESSALON PERLE PO PRN (17:40)
[2018-07-08 19:50] VITALS: BP 141/65
[2018-07-08] MEDS: LIPITOR PO SCH (21:04)
[2018-07-08] MEDS: RESTORIL PO SCH (21:04)
[2018-07-09 00:12] VITALS: BP 134/55
[2018-07-09] MEDS: DUONEB 0.5 MG-3 MG/3 ML SOLN IH SCH ×4 (02:16→20:13)
[2018-07-09 05:03] LABS: BASOPHIL % 0.1 % (0.0-0.2); HEMOGLOBIN 11.6 g/dL (12.0-15.0); LYMPHOCYTES # 0.9 10^3/uL (1.0-4.8); LYMPHOCYTES % 7.4 % (24.0-44.0); MEAN CELL HGB 29.3 pg (26-34); MEAN CELL HGB CONCENTRATION 32.9 g/dL (33-37); MEAN CORP VOLUME 89.1 fL (78-100); MONOCYTES # 0.7 10^3/uL (0.3-0.8); MONOCYTES % 5.4 % (5.0-12.0); NEUTROPHIL # 10.5 10^3/uL (1.8-7.7); NEUTROPHILS % 85.9 % (41.0-85.0); RED CELL DISTRIBUTION WIDTH 13.3 % (11.5-14.5); WHITE BLOOD CELL 12.2 10^3/uL (4.5-11.0)
[2018-07-09 05:11] VITALS: BP 143/61
[2018-07-09 05:27] LABS: CALCIUM 8.5 mg/dL (8.4-10.5); CARBON DIOXIDE 34.1 mmol/L (20.0-32)
[2018-07-09] MEDS: SOLU-MEDROL IV SCH ×3 (05:47→21:18)
[2018-07-09] MEDS: SYNTHROID PO SCH (05:47)
[2018-07-09] MEDS: NS 1000ML 1,000 ML IV SCH ×4 (05:53→23:44)
[2018-07-09 08:07] VITALS: BP 158/69
[2018-07-09] MEDS: ZITHROMAX 500 MG in NS 250ML 250 ML IV SCH (08:14)
[2018-07-09] MEDS: PROTONIX PO SCH (08:15)
[2018-07-09] MEDS: HUMALOG SQ SCH ×4 (08:16→21:17)
[2018-07-09] MEDS ORDERED: NORVASC PO STA (09:06)
--- NOTE | 2018-07-09 09:12 | PRM.PN ---
Subjective Subjective Date: July 09, 2018 Time: 09:00 Subjective Patient still slow improvement. She was hypoxic off O2 while ambulating. No fever, no chills. Labs reviewed. VTE VTE Risk Total Score: >5 VTE Risk Score VTE Risk: Score 0-1 = Low Risk (Aggressive mobilization; early ambulation; no VTE prophylaxis required) Score 2: Moderate Risk (Intermittent/Pneumatic Compression Device OR Lovenox/Heparin/Coumadin) Score 3-4: High Risk (Intermittent/Pneumatic Compression Device AND Lovenox/Heparin/Coumadin) Score > or =5: Highest Risk (Intermittent/Pneumatic Compression Device AND Lovenox/Heparin/Coumadin) Review of Systems Allergies: Coded Allergies: morphine (Verified Allergy, Intermediate, 07/06/18) Scheduled Clopidogrel Bisulfate (Plavix), 75 MG PO DAILY24, (Reported) Famotidine (Famotidine), 40 MG PO BID, (Reported) Levothyroxine Sodium (Levothyroxine Sodium), 75 MCG PO DAILY24, (Reported) Losartan Potassium (Losartan Potassium), 25 MG PO DAILY24, (Reported) Metformin Hcl (Metformin Hcl), 500 MG PO BID, (Reported) Nifedipine (Nifedipine Er), 30 MG PO DAILY24, (Reported) Oxybutynin Chloride (Oxybutynin Chloride Er), 15 MG PO DAILY24, (Reported) Simvastatin (Simvastatin), 40 MG PO DAILY24, (Reported) Objective Vitals and I/O Vital Sign - Last 24 Hours 07/06/18 07/06/18 07/06/18 07/06/18 18:47 18:51 18:51 18:56 Temp 98.4 98.0 98.0 98.4 98.0 98.0 Pulse 121 120 102 102 Resp 29 72 28 38 B/P (MAP) 152/66 (94) Pulse Ox 95 60 60 O2 Delivery S/T Room Air Room Air FiO2 45 07/06/18 07/06/18 07/06/18 07/06/18 19:00 19:11 19:11 19:13 Pulse 104 102 102 112 Resp 20 38 38 28 B/P (MAP) 159/68 (98) Pulse Ox 98 95 95 95 O2 Delivery Bi Pap Bi-pap FiO2 45 07/06/18 07/06/18 07/06/18 07/06/18 20:00 21:00 22:16 22:30 Temp 97.8 97.8 Pulse 74 82 Resp 18 24 B/P (MAP) 174/78 (110) 162/82 (108) 157/84 (108) Pulse Ox 97 97 98 O2 Delivery Bi Pap Bi Pap Nasal Cannula O2 Flow Rate 3.00 07/06/18 07/06/18 07/06/18 07/06/18 22:31 22:46 23:01 23:16 Pulse 104 101 102 103 Resp 19 38 28 B/P (MAP) 147/71 (96) 150/62 (91) 150/72 (98) 144/87 (106) Pulse Ox 98 98 99 96 07/06/18 07/06/18 07/06/18 07/06/18 23:31 23:32 23:33 23:33 Pulse 101 74 Resp 18 18 B/P (MAP) 141/70 (93) Pulse Ox 95 97 97 O2 Delivery Nasal Cannula S/T O2 Flow Rate 3.00 07/06/18 07/07/18 07/07/18 07/07/18 23:46 00:02 00:05 00:16 Temp 98.2 98.2 Pulse 104 112 101 Resp 19 26 B/P (MAP) 164/81 (108) 167/61 (96) 138/64 144/120 (128) Pulse Ox 96 93 94 07/07/18 07/07/18 07/07/18 07/07/18 00:29 00:30 00:32 00:46 Temp 98.0 Pulse 74 104 105 99 Resp 39 23 32 B/P (MAP) 138/64 (88) 149/66 (93) Pulse Ox 97 93 95 96 O2 Delivery Room Air 07/07/18 07/07/18 07/07/18 07/07/18 00:55 01:01 01:16 01:31 Pulse 98 97 94 Resp 27 B/P (MAP) 156/80 (105) 151/73 (99) 134/54 (80) Pulse Ox 95 94 94 O2 Delivery Nasal Cannula O2 Flow Rate 3.00 07/07/18 07/07/18 07/07/18 07/07/18 01:46 01:47 02:01 02:16 Pulse 92 91 100 Resp 35 22 B/P (MAP) 132/63 (86) 129/61 (83) 149/67 (94) Pulse Ox 96 91 94 O2 Delivery Nasal Cannula O2 Flow Rate 3.00 07/07/18 07/07/18 07/07/18 07/07/18 02:31 02:46 02:51 03:01 Pulse 95 96 90 95 Resp 30 34 25 26 B/P (MAP) 130/63 (85) 143/72 (95) 142/74 (96) Pulse Ox 95 93 90 94 07/07/18 07/07/18 07/07/18 07/07/18 03:02 03:16 03:31 03:46 Pulse 90 91 90 94 Resp 25 27 26 34 B/P (MAP) 143/61 (88) 139/70 (93) 141/71 (94) Pulse Ox 90 94 97 95 07/07/18 07/07/18 07/07/18 07/07/18 04:01 04:16 04:31 04:46 Pulse 90 99 92 89 Resp 29 36 24 24 B/P (MAP) 131/63 (85) 144/70 (94) 140/66 (90) 137/70 (92) Pulse Ox 95 94 95 96 07/07/18 07/07/18 07/07/18 07/07/18 05:01 05:31 05:40 05:47 Temp 98.2 98.2 Pulse 91 97 92 Resp 25 32 B/P (MAP) 134/68 (90) 92/67 (75) 137/71 (93) Pulse Ox 96 92 95 O2 Delivery Nasal Cannula O2 Flow Rate 3.00 07/07/18 07/07/18 07/07/18 07/07/18 06:01 06:16 06:31 06:46 Pulse 88 91 94 100 Resp 26 26 22 24 B/P (MAP) 143/63 (89) 136/68 (90) 149/63 (91) 152/83 (106) Pulse Ox 99 99 99 96 07/07/18 07:01 Pulse 91 Resp 37 B/P (MAP) 133/74 (93) Pulse Ox 97 General: Alert, Oriented X3, Cooperative, No acute distress HEENT: Atraumatic, PERRLA, EOMI, Mucous membr. moist/pink Neck: Supple, No JVD Lungs: Other (diffuse wheezing, decreased aeration.) Heart: Normal S1, Normal S2, No murmurs, Other (tachycardic) Abdomen: Normal bowel sounds, Soft, No tenderness Extremities: No edema, Normal pulses, No tenderness/swelling Skin: No rashes, No breakdown, No significant lesion Neuro: Normal gait, Normal speech, Strength at 5/5 X4 ext, Normal tone, S ensation intact, Cranial nerves 3-12 NL Psych/Mental Status: Mental status NL, Mood NL All Results(Lab/Rad) Laboratory Tests Test 07/06/18 18:28 07/06/18 18:40 07/06/18 18:48 07/06/18 19:26 Blood Gas Sample Site RT RADIAL ARTERY Blood Gas pH 7.350 Blood Gas PCO2 53.7 mmHg Blood Gas PO2 125.0 mmHg Blood Gas HCO3 29.0 mmol/L Blood Gas Base Excess 2.4 mmol/L [place] Test POSITIVE Arterial Blood Oxygen Saturation 97.8 % Deoxyhemoglobin 2.2 % Carboxyhemoglobin 0.9 % Methemoglobin 0.1 % Total Hemoglobin 12.9 % Total Oxygen Concentration 17.7 % Lactic Acid (Blood Gas) 0.7 mmol/1 Blood Gas Temperature 37 Oxygen Delivery Method (LAB) AEROSOL MASK FiO2 80.0 % Bicarbonate 30.6 mmol/L White Blood Count 8.5 10^3/uL Red Blood Count 4.30 10^6/uL Hemoglobin 12.5 g/dL Hematocrit 36.8 % Mean Corpuscular Volume 85.6 fL Mean Corpuscular Hemoglobin 29.1 pg Mean Corpuscular Hemoglobin Concent 34.0 g/dL Red Cell Distribution Width 13.2 % Platelet Count 286 10^3/uL Mean Platelet Volume 9.0 fL Neutrophils (%) (Auto) 75.8 % Lymphocytes (%) (Auto) 13.4 % Monocytes (%) (Auto) 9.8 % Neutrophils # (Auto) 6.4 10^3/uL Lymphocytes # (Auto) 1.1 10^3/uL Monocytes # (Auto) 0.8 10^3/uL Absolute Immature Granulocyte (auto 0.02 10^3 u/L Immature Granulocytes % 0.20 % Eosinophils % 0.6 % Basophils % 0.2 % Basophils # 0.0 10^3/uL Eosinophil Count 0.1 10^3/uL Sodium Level 126 mmol/L Potassium Level 4.6 mmol/L Chloride Level 88.0 mmol/L Carbon Dioxide Level 29.1 mmol/L Anion Gap 13.5 Blood Urea Nitrogen 11 mg/dL Creatinine 0.72 mg/dL Estimated GFR () 97.5 BUN/Creatinine Ratio 15.0 Glucose Level 129 mg/dL Calcium Level 9.5 mg/dL Total Bilirubin 0.5 mg/dL Aspartate Amino Transf (AST/SGOT) 30 U/L Alanine Aminotransferase (ALT/SGPT) 33 U/L Alkaline Phosphatase 117 U/L Troponin I < 0.02 ng/mL Pro-B-Type Natriuretic Peptide 170 pg/mL Total Protein 7.8 g/dL Albumin 3.6 g/dL Globulin 4.2 Magnesium Level 1.3 mg/dL Thyroid Stimulating Hormone (TSH) 1.482 mIU/mL Differential Total Cells Counted 100 #CELLS Segmented Neutrophils 77 % Band Neutrophils % Lymphocytes 14 % Monocytes 9 % Platelet Morphology NORMAL Test 07/07/18 00:35 07/07/18 06:10 07/07/18 06:30 Troponin I < 0.02 ng/mL < 0.02 ng/mL Bedside Glucose 131 White Blood Count 7.1 10^3/uL Red Blood Count 4.08 10^6/uL Hemoglobin 11.9 g/dL Hematocrit 35.4 % Mean Corpuscular Volume 86.8 fL Mean Corpuscular Hemoglobin 29.2 pg Mean Corpuscular Hemoglobin Concent 33.6 g/dL Red Cell Distribution Width 13.1 % Platelet Count 275 10^3/uL Mean Platelet Volume 9.0 fL Neutrophils (%) (Auto) 81.3 % Lymphocytes (%) (Auto) 12.4 % Monocytes (%) (Auto) 5.4 % Neutrophils # (Auto) 5.8 10^3/uL Lymphocytes # (Auto) 0.9 10^3/uL Monocytes # (Auto) 0.4 10^3/uL Absolute Immature Granulocyte (auto 0.06 10^3 u/L Immature Granulocytes % 0.80 % Eosinophils % 0.0 % Basophils % 0.1 % Basophils # 0.0 10^3/uL Eosinophil Count 0.0 10^3/uL Sodium Level 129 mmol/L Potassium Level 5.0 mmol/L Chloride Level 91.0 mmol/L Carbon Dioxide Level 31.6 mmol/L Anion Gap 11.4 Blood Urea Nitrogen 10 mg/dL Creatinine 0.76 mg/dL Estimated GFR () 91.6 BUN/Creatinine Ratio 13.0 Glucose Level 138 mg/dL Calcium Level 9.3 mg/dL Total Bilirubin 0.4 mg/dL Aspartate Amino Transf (AST/SGOT) 25 U/L Alanine Aminotransferase (ALT/SGPT) 31 U/L Alkaline Phosphatase 114 U/L Total Protein 7.4 g/dL Albumin 3.2 g/dL Globulin 4.2 Current Medications Medications (Trade) Dose Ordered Sig/Sravanthi Route PRN Reason Start Time Stop Time Status Last Admin Dose Admin Albuterol/ Ipratropium (Duoneb 0.5 Mg-3 Mg/3 ml Soln) 3 ml STK-MED ONCE IH 07/06/18 18:26 07/06/18 18:27 DC Albuterol/ Ipratropium (Duoneb 0.5 Mg-3 Mg/3 ml Soln) 6 ml STAT STAT IH 07/06/18 18:28 07/06/18 18:33 DC 07/06/18 18:59 Dexamethasone Sodium Phosphate (Decadron) 8 mg STAT STAT IV 07/06/18 18:28 07/06/18 18:33 DC 07/06/18 19:27 Dexamethasone Sodium Phosphate (Decadron) 4 mg STK-MED ONCE .ROUTE 07/06/18 19:09 07/06/18 19:11 DC Albuterol Sulfate (Ventolin) 2.5 mg RTQ2 PRN IH SHORTNESS OF BREATH 07/06/18 20:00 08/05/18 19:59 Ipratropium [place] (Atrovent) 0.5 mg RTQ2 PRN IH SHORTNESS OF BREATH 07/06/18 20:00 08/05/18 19:59 Levofloxacin/ Dextrose 150 ml @ 100 mls/hr Q24HRS ONCE IV 07/06/18 20:30 07/06/18 21:59 DC 07/06/18 20:43 Levofloxacin/ Dextrose 150 ml @ ud STK-MED ONCE IV 07/06/18 20:36 07/06/18 20:38 DC Ondansetron HCl (Zofran) 4 mg Q4H PRN IV NAUSEA / VOMITING 07/06/18 23:00 08/05/18 22:59 Pantoprazole Sodium (Protonix) 40 mg DAILY PO 07/07/18 09:00 08/06/18 08:59 Ceftriaxone Sodium 1000 mg/ Sodium Chloride 100 ml @ 100 mls/hr Q24HRS IV 07/07/18 09:00 08/06/18 08:59 Azithromycin 500 mg/Sodium Chloride 250 ml @ 175 mls/hr Q24HRS IV 07/07/18 08:00 08/06/18 07:59 Methylprednisolone Sodium Succinate (Solu-Medrol) 40 mg Q8HR IV 07/07/18 06:00 08/06/18 05:59 07/07/18 06:07 Albuterol/ Ipratropium (Duoneb 0.5 Mg-3 Mg/3 ml Soln) 3 ml RTQ6 IH 07/07/18 03:00 08/06/18 02:59 07/07/18 02:50 Temazepam (Restoril) 15 mg STAT STAT PO 07/06/18 23:04 07/06/18 23:07 DC 07/07/18 00:04 Clopidogrel Bisulfate (Plavix) 75 mg DAILY24 PO 07/06/18 23:30 08/05/18 23:29 07/07/18 00:04 Levothyroxine Sodium (Synthroid) 75 mcg DAILY24 PO 07/06/18 23:30 07/07/18 07:39 DC 07/07/18 00:04 Losartan Potassium (Cozaar) 25 mg DAILY24 PO 07/06/18 23:30 08/05/18 23:29 07/07/18 00:05 Atorvastatin Calcium (Lipitor) 20 mg HS PO 07/07/18 21:00 08/06/18 20:59 Insulin Human Lispro (Humalog) Give when food is in front... ACHS SQ 07/07/18 07:30 08/06/18 07:29 Dextrose (Dextrose 50%-Water Syringe) 25 ml STAT PRN IV HYPOGLYCEMIA 07/06/18 23:30 08/05/18 23:29 Hydralazine HCl (Apresoline) 10 mg Q4HR PRN IV HYPERTENSION 07/06/18 23:30 08/05/18 23:29 Enoxaparin Sodium (Lovenox) 40 mg Q24HRS SQ 07/06/18 23:30 08/05/18 23:29 07/07/18 00:04 Enoxaparin Sodium (Lovenox) 40 mg STK-MED ONCE SQ 07/06/18 23:58 07/07/18 00:00 DC Levothyroxine Sodium (Synthroid) 75 mcg ACB PO 07/08/18 06:30 08/05/18 23:29 Magnesium Sulfate 50 ml @ 50 mls/hr OT ONCE IV 07/07/18 08:30 07/07/18 09:29 UNV Sodium Chloride 1,000 ml @ 100 mls/hr Q10H ONCE IV 07/07/18 08:30 07/07/18 18:29 UNV Course Sepsis Screening Results: Posi: POSITIVE Sepsis Qualifier/Stage: SEPSIS RISK Duration or Total Time Spent w: 60 Vitals & review Data Vital Sign - Last 24 Hours 07/06/18 07/06/18 07/06/18 07/06/18 18:47 18:51 18:51 18:56 Temp 98.4 98.0 98.0 98.4 98.0 98.0 Pulse 121 120 102 102 Resp 29 72 28 38 B/P (MAP) 152/66 (94) Pulse Ox 95 60 60 O2 Delivery S/T Room Air Room Air FiO2 45 07/06/18 07/06/18 07/06/18 07/06/18 19:00 19:11 19:11 19:13 Pulse 104 102 102 112 Resp 20 38 38 28 B/P (MAP) 159/68 (98) Pulse Ox 98 95 95 95 O2 Delivery Bi Pap Bi-pap FiO2 45 07/06/18 07/06/18 07/06/18 07/06/18 20:00 21:00 22:16 22:30 Temp 97.8 97.8 Pulse 74 82 Resp 18 24 B/P (MAP) 174/78 (110) 162/82 (108) 157/84 (108) Pulse Ox 97 97 98 O2 Delivery Bi Pap Bi Pap Nasal Cannula O2 Flow Rate 3.00 07/06/18 07/06/18 07/06/18 07/06/18 22:31 22:46 23:01 23:16 Pulse 104 101 102 103 Resp 19 25 38 28 B/P (MAP) 147/71 (96) 150/62 (91) 150/72 (98) 144/87 (106) Pulse Ox 98 98 99 96 07/06/18 07/06/18 07/06/18 07/06/18 23:31 23:32 23:33 23:33 Pulse 101 74 Resp 18 18 B/P (MAP) 141/70 (93) Pulse Ox 95 97 97 O2 Delivery Nasal Cannula S/T O2 Flow Rate 3.00 07/06/18 07/07/18 07/07/18 07/07/18 23:46 00:02 00:05 00:16 Temp 98.2 98.2 Pulse 104 112 101 Resp 19 26 B/P (MAP) 164/81 (108) 167/61 (96) 138/64 144/120 (128) Pulse Ox 96 93 94 07/07/18 07/07/18 07/07/18 07/07/18 00:29 00:30 00:32 00:46 Temp 98.0 Pulse 74 104 105 99 Resp 18 39 23 32 B/P (MAP) 138/64 (88) 149/66 (93) Pulse Ox 97 93 95 96 O2 Delivery Room Air 07/07/18 07/07/18 07/07/18 07/07/18 00:55 01:01 01:16 01:31 Pulse 98 97 94 Resp B/P (MAP) 156/80 (105) 151/73 (99) 134/54 (80) Pulse Ox 95 94 94 O2 Delivery Nasal Cannula O2 Flow Rate 3.00 07/07/18 07/07/18 07/07/18 07/07/18 01:46 01:47 02:01 02:16 Pulse 92 91 100 Resp 28 35 22 B/P (MAP) 132/63 (86) 129/61 (83) 149/67 (94) Pulse Ox 96 91 94 O2 Delivery Nasal Cannula O2 Flow Rate 3.00 07/07/18 07/07/18 07/07/18 07/07/18 02:31 02:46 02:51 03:01 Pulse 95 96 90 95 Resp 30 34 25 26 B/P (MAP) 130/63 (85) 143/72 (95) 142/74 (96) Pulse Ox 95 93 90 94 07/07/18 07/07/18 07/07/18 07/07/18 03:02 03:16 03:31 03:46 Pulse 90 91 90 94 Resp 34 B/P (MAP) 143/61 (88) 139/70 (93) 141/71 (94) Pulse Ox 90 94 97 95 07/07/18 07/07/18 07/07/18 07/07/18 04:01 04:16 04:31 04:46 Pulse 90 99 92 89 Resp 29 36 24 24 B/P (MAP) 131/63 (85) 144/70 (94) 140/66 (90) 137/70 (92) Pulse Ox 95 94 95 96 07/07/18 07/07/18 07/07/18 07/07/18 05:01 05:31 05:40 05:47 Temp 98.2 98.2 Pulse 91 97 92 Resp 25 32 B/P (MAP) 134/68 (90) 92/67 (75) 137/71 (93) Pulse Ox 96 92 95 O2 Delivery Nasal Cannula O2 Flow Rate 3.00 07/07/18 07/07/18 07/07/18 07/07/18 06:01 06:16 06:31 06:46 Pulse 88 91 94 100 Resp 26 26 22 24 B/P (MAP) 143/63 (89) 136/68 (90) 149/63 (91) 152/83 (106) Pulse Ox 99 99 99 96 07/07/18 07:01 Pulse 91 Resp 37 B/P (MAP) 133/74 (93) Pulse Ox 97 Laboratory Tests Test 07/06/18 00:00 07/06/18 18:28 07/06/18 18:40 07/06/18 18:48 Influenza Type A Antigen NEGATIVE Influenza B Immunofluorescence NEGATIVE Blood Gas Sample Site RT RADIAL ARTERY Blood Gas pH 7.350 Blood Gas PCO2 53.7 mmHg Blood Gas PO2 125.0 mmHg Blood Gas HCO3 29.0 mmol/L Blood Gas Base Excess 2.4 mmol/L [place] Test POSITIVE Arterial Blood Oxygen Saturation 97.8 % Deoxyhemoglobin 2.2 % Carboxyhemoglobin 0.9 % Methemoglobin 0.1 % Total Hemoglobin 12.9 % Total Oxygen Concentration 17.7 % Lactic Acid (Blood Gas) 0.7 mmol/1 Blood Gas Temperature 37 Oxygen Delivery Method (LAB) AEROSOL MASK FiO2 80.0 % Bicarbonate 30.6 mmol/L White Blood Count 8.5 10^3/uL Red Blood Count 4.30 10^6/uL Hemoglobin 12.5 g/dL Hematocrit 36.8 % Mean Corpuscular Volume 85.6 fL Mean Corpuscular Hemoglobin 29.1 pg Mean Corpuscular Hemoglobin Concent 34.0 g/dL Red Cell Distribution Width 13.2 % Platelet Count 286 10^3/uL Mean Platelet Volume 9.0 fL Neutrophils (%) (Auto) 75.8 % Lymphocytes (%) (Auto) 13.4 % Monocytes (%) (Auto) 9.8 % Neutrophils # (Auto) 6.4 10^3/uL Lymphocytes # (Auto) 1.1 10^3/uL Monocytes # (Auto) 0.8 10^3/uL Absolute Immature Granulocyte (auto 0.02 10^3 u/L Immature Granulocytes % 0.20 % Eosinophils % 0.6 % Basophils % 0.2 % Basophils # 0.0 10^3/uL Eosinophil Count 0.1 10^3/uL Sodium Level 126 mmol/L Potassium Level 4.6 mmol/L Chloride Level 88.0 mmol/L Carbon Dioxide Level 29.1 mmol/L Anion Gap 13.5 Blood Urea Nitrogen 11 mg/dL Creatinine 0.72 mg/dL Estimated GFR () 97.5 BUN/Creatinine Ratio 15.0 Glucose Level 129 mg/dL Calcium Level 9.5 mg/dL Total Bilirubin 0.5 mg/dL Aspartate Amino Transf (AST/SGOT) 30 U/L Alanine Aminotransferase (ALT/SGPT) 33 U/L Alkaline Phosphatase 117 U/L Troponin I < 0.02 ng/mL Pro-B-Type Natriuretic Peptide 170 pg/mL Total Protein 7.8 g/dL Albumin 3.6 g/dL Globulin 4.2 Magnesium Level 1.3 mg/dL Thyroid Stimulating Hormone (TSH) 1.482 mIU/mL Test 07/06/18 19:26 07/07/18 00:35 07/07/18 06:10 07/07/18 06:30 Differential Total Cells Counted 100 #CELLS Segmented Neutrophils 77 % Band Neutrophils % Lymphocytes 14 % Monocytes 9 % Platelet Morphology NORMAL Troponin I < 0.02 ng/mL < 0.02 ng/mL Bedside Glucose 131 White Blood Count 7.1 10^3/uL Red Blood Count 4.08 10^6/uL Hemoglobin 11.9 g/dL Hematocrit 35.4 % Mean Corpuscular Volume 86.8 fL Mean Corpuscular Hemoglobin 29.2 pg Mean Corpuscular Hemoglobin Concent 33.6 g/dL Red Cell Distribution Width 13.1 % Platelet Count 275 10^3/uL Mean Platelet Volume 9.0 fL Neutrophils (%) (Auto) 81.3 % Lymphocytes (%) (Auto) 12.4 % Monocytes (%) (Auto) 5.4 % Neutrophils # (Auto) 5.8 10^3/uL Lymphocytes # (Auto) 0.9 10^3/uL Monocytes # (Auto) 0.4 10^3/uL Absolute Immature Granulocyte (auto 0.06 10^3 u/L Immature Granulocytes % 0.80 % Eosinophils % 0.0 % Basophils % 0.1 % Basophils # 0.0 10^3/uL Eosinophil Count 0.0 10^3/uL Sodium Level 129 mmol/L Potassium Level 5.0 mmol/L Chloride Level 91.0 mmol/L Carbon Dioxide Level 31.6 mmol/L Anion Gap 11.4 Blood Urea Nitrogen 10 mg/dL Creatinine 0.76 mg/dL Estimated GFR () 91.6 BUN/Creatinine Ratio 13.0 Glucose Level 138 mg/dL Calcium Level 9.3 mg/dL Total Bilirubin 0.4 mg/dL Aspartate Amino Transf (AST/SGOT) 25 U/L Alanine Aminotransferase (ALT/SGPT) 31 U/L Alkaline Phosphatase 114 U/L Total Protein 7.4 g/dL Albumin 3.2 g/dL Globulin 4.2 Current Medications Medications (Trade) Dose Ordered Sig/Sravanthi PRN Reason Start Time Stop Time Status Last Admin Albuterol Sulfate (Ventolin) 2.5 mg RTQ2 PRN SHORTNESS OF BREATH 07/06/18 20:00 08/05/18 19:59 Albuterol/ Ipratropium (Duoneb 0.5 Mg-3 Mg/3 ml Soln) 3 ml RTQ6 07/07/18 03:00 08/06/18 02:59 07/07/18 02:50 Atorvastatin Calcium (Lipitor) 20 mg HS 07/07/18 21:00 08/06/18 20:59 Azithromycin 500 mg/Sodium Chloride 250 ml @ 175 mls/hr Q24HRS 07/07/18 08:00 08/06/18 07:59 Ceftriaxone Sodium 1000 mg/ Sodium Chloride 100 ml @ 100 mls/hr Q24HRS 07/07/18 09:00 08/06/18 08:59 Clopidogrel Bisulfate (Plavix) 75 mg DAILY24 07/06/18 23:30 08/05/18 23:29 07/07/18 00:04 Dextrose (Dextrose 50%-Water Syringe) 25 ml STAT PRN HYPOGLYCEMIA 5/22/19 23:30 08/05/18 23:29 Enoxaparin Sodium (Lovenox) 40 mg Q24HRS 07/06/18 23:30 08/05/18 23:29 07/07/18 00:04 Hydralazine HCl (Apresoline) 10 mg Q4HR PRN HYPERTENSION 07/06/18 23:30 08/05/18 23:29 Insulin Human Lispro (Humalog) Give when food is in front... ACHS 07/07/18 07:30 08/06/18 07:29 Ipratropium [place] (Atrovent) 0.5 mg RTQ2 PRN SHORTNESS OF BREATH 07/06/18 20:00 08/05/18 19:59 Levothyroxine Sodium (Synthroid) 75 mcg ACB 07/08/18 06:30 08/05/18 23:29 Losartan Potassium (Cozaar) 25 mg DAILY24 07/06/18 23:30 08/05/18 23:29 07/07/18 00:05 Methylprednisolone Sodium Succinate (Solu-Medrol) 40 mg Q8HR 07/07/18 06:00 08/06/18 05:59 07/07/18 06:07 Ondansetron HCl (Zofran) 4 mg Q4H PRN NAUSEA / VOMITING 07/06/18 23:00 08/05/18 22:59 Pantoprazole Sodium (Protonix) 40 mg DAILY 07/07/18 09:00 08/06/18 08:59 Sepsis Infection Criteria Pres: Suspected Infection LEVEL 1 SEPSIS INFECTION CRITE: ABX Therapy, Cough/Shortness of Breath LEVEL 2-SIRS (LIST ALL THAT AP: None/Not assessed Cardiovascular Evidence: Not Assessed or None Hematologic Evidence: None/Not assessed Hepatic Evidence: None/Not assessed Metabolic Evidence: None/Not assessed Neurological Evidence: None/Not assessed Respiratory Evidence: Acute Resp failure, Need for O2 to keep>90%, O2 SAT<90room air Renal Evidence: None/Not assessed O2 Sat by Pulse Oximetry: 98 Oxygen Flow Rate: 2.00 Assessment/Plan Assessment/Plan Assessment/Plan 1. Hypoxic/Hypercapneic Respiratory failure: Patient improving slowly. Cont IV steroids, IV abx, nebs, O2 support. Patient likely d/c in AM. 2. Hyponatremia: cont IVF, patient has outpatient f/u with Physical Therapy Aides Teacher to monitor lung nodules. 3. COPD exacerbation: plan as per above. 4. Dyspnea: improved, cont treatment as above. ACS previously ruled out. 5. DM: SSI to cover. Holding Metformin. 6. HTN: cont ARB, holding CCB. Hydralazine IV prn. 7. HLD: cont Statin 8. Hypothyroidism: cont Synthroid 9. PPx: PPI, Lovenox 10. Hyperkalemia: resolved with Kayexalate. Cont albuterol, Insulin. Daily metabolic panel. Can D/C telemetry. 11. Insomnia: cont Restoril prn QHS. CURLY LEW MD July 09, 2018 09:12
[2018-07-09] MEDS: ROCEPHIN 1,000 MG in NS 100ML 100 ML IV SCH (09:51)
[2018-07-09] MEDS: TESSALON PERLE PO PRN (11:24)
--- NOTE | 2018-07-09 11:24 | NUR ---
STATUS Pt COUGHING FREQUENTLY ADMINISTERED TESSELON 100 MG PRN PO, WILL REASSESS THE Pt.
[2018-07-09 12:21] VITALS: BP 154/67
[2018-07-09 16:50] VITALS: BP 168/76
--- NOTE | 2018-07-09 18:50 | NUR ---
report received report from offgoing shift
[2018-07-09 20:34] VITALS: BP 156/71
[2018-07-09] MEDS: LIPITOR PO SCH (21:18)
[2018-07-09] MEDS: RESTORIL PO SCH (21:18)
[2018-07-09] MEDS: PLAVIX PO SCH (23:44)
[2018-07-09] MEDS: COZAAR PO SCH (23:44)
[2018-07-09] MEDS: LOVENOX SQ SCH (23:44)
[2018-07-10 00:12] VITALS: BP 150/68
[2018-07-10] MEDS: DUONEB 0.5 MG-3 MG/3 ML SOLN IH SCH ×2 (03:00→08:33)
[2018-07-10 03:55] VITALS: BP 163/77
[2018-07-10 05:39] LABS: BASOPHIL % 0.3 % (0.0-0.2); EOSINOPHIL # 0.1 10^3/uL (0.0-0.2); EOSINOPHIL % 0.7 % (0.0-5.0); HEMOGLOBIN 12.4 g/dL (12.0-15.0); LYMPHOCYTES # 0.9 10^3/uL (1.0-4.8); LYMPHOCYTES % 8.3 % (24.0-44.0); MEAN CELL HGB 28.8 pg (26-34); MEAN CELL HGB CONCENTRATION 32.7 g/dL (33-37); MEAN CORP VOLUME 88.1 fL (78-100); MEAN PLATELET VOLUME 9.4 fL (7.8-11.0); MONOCYTES # 0.6 10^3/uL (0.3-0.8); MONOCYTES % 5.1 % (5.0-12.0); NEUTROPHIL # 9.1 10^3/uL (1.8-7.7); NEUTROPHILS % 83.9 % (41.0-85.0); RED CELL DISTRIBUTION WIDTH 13.4 % (11.5-14.5); WHITE BLOOD CELL 10.9 10^3/uL (4.5-11.0)
[2018-07-10 05:45] LABS: CALCIUM 8.5 mg/dL (8.4-10.5); CARBON DIOXIDE 37.4 mmol/L (20.0-32)
[2018-07-10] MEDS: SOLU-MEDROL IV SCH (05:50)
[2018-07-10] MEDS: SYNTHROID PO SCH (05:50)
[2018-07-10] MEDS: HUMALOG SQ SCH (07:28)
[2018-07-10 07:50] VITALS: BP 159/80
[2018-07-10] MEDS: PROTONIX PO SCH (08:23)
[2018-07-10] MEDS: ZITHROMAX 500 MG in NS 250ML 250 ML IV SCH (08:24)
[2018-07-10] MEDS ORDERED: NORVASC PO SCH (09:00)
[2018-07-10] MEDS ORDERED: BENZ100C PO (09:01)
[2018-07-10] MEDS ORDERED: TEMA15CA6 PO (09:01)
[2018-07-10] MEDS ORDERED: PRED20TA PO (09:02)
[2018-07-10] MEDS ORDERED: ALBU8.5H7 IH (09:02)
--- NOTE | 2018-07-10 09:10 | PRM.DC ---
Discharge Summary Date of Discharge: July 10, 2018 Time of Request to Discharge: 09:00 Reason for Visit: Dyspnea x 3-4 days Hospital Course Patient admitted with dyspnea and found to have acute Hypoxic and Hypercapnic respiratory failure from COPD exacerbation. Patient was started on IV abx, IV steroids, Nebs, O2 support, and IS. Patient was slow recovery. She underwent O2 challenge and qualified for home O2. Patient hospital stay complicated by Hyponatremia as well. Imaging shows multiple lung nodules. These are chronic and are being monitored by Sports Physiologist outpatient. Patient was treated with IVF for low Na with stabilization. Patient did have lab return morning of with Hyperkalemia. Patient was treated with Kayexalate with improvement in symptoms. Patient again was slow recovery but much improved from admission. She is medically clear to d/c on 07/10 AM. Patient will be sent home with 3 day course of Steroids, rescue inhaler, Home o2, cough medications, and sleeping medication to take until course of steroids are complete. Patient given strict return precautions and will f/u with PCP/Sports Physiologist within 1-2 weeks. General: Alert, Oriented X3, Cooperative, No acute distress HEENT: Atraumatic, PERRLA, EOMI, Mucous membr. moist/pink Neck: Supple, No JVD Lungs: Other (mild wheezing, improved aeration) Heart: Regular rate, Normal S1, Normal S2, No murmurs Abdomen: Normal bowel sounds, Soft, No tenderness Extremities: No edema, Normal pulses, No tenderness/swelling Skin: No rashes, No breakdown, No significant lesion Neuro: Normal gait, Normal speech, Strength at 5/5 X4 ext, Normal tone, Sensation intact, Cranial nerves 3-12 NL Psych/Mental Status: Mental status NL, Mood NL Scheduled Clopidogrel Bisulfate (Plavix), 75 MG PO DAILY24, (Reported) Famotidine (Famotidine), 40 MG PO BID, (Reported) Levothyroxine Sodium (Levothyroxine Sodium), 75 MCG PO DAILY24, (Reported) Losartan Potassium (Losartan Potassium), 25 MG PO DAILY24, (Reported) Metformin Hcl (Metformin Hcl), 500 MG PO BID, (Reported) Nifedipine (Nifedipine Er), 30 MG PO DAILY24, (Reported) Oxybutynin Chloride (Oxybutynin Chloride Er), 15 MG PO DAILY24, (Reported) Prednisone (Prednisone), 20 MG PO DAILY24 Simvastatin (Simvastatin), 40 MG PO DAILY24, (Reported) Temazepam (Restoril), 15 MG PO HS Scheduled PRN Albuterol Sulfate (Proair Hfa), 8.5 GM IH Q4 PRN for WHEEZING Benzonatate (Tessalon Perle), 100 MG PO TID PRN for COUGH Sepsis Evaluation @ Discharge Vital Sign - Last 24 Hours 07/06/18 07/06/18 07/06/18 07/06/18 18:47 18:51 18:51 18:56 Temp 98.4 98.0 98.0 98.4 98.0 98.0 Pulse 121 120 102 102 Resp 29 72 28 38 B/P (MAP) 152/66 (94) Pulse Ox 95 60 60 O2 Delivery S/T Room Air Room Air FiO2 45 07/06/18 07/06/18 07/06/18 07/06/18 19:00 19:11 19:11 19:13 Pulse 104 102 102 112 Resp 20 38 38 28 B/P (MAP) 159/68 (98) Pulse Ox 98 95 95 95 O2 Delivery Bi Pap Bi-pap FiO2 45 07/06/18 07/06/18 07/06/18 07/06/18 20:00 21:00 22:16 22:30 Temp 97.8 97.8 Pulse 74 82 Resp 18 24 B/P (MAP) 174/78 (110) 162/82 (108) 157/84 (108) Pulse Ox 97 97 98 O2 Delivery Bi Pap Bi Pap Nasal Cannula O2 Flow Rate 3.00 07/06/18 07/06/18 07/06/18 07/06/18 22:31 22:46 23:01 23:16 Pulse 104 101 102 103 Resp 19 25 38 28 B/P (MAP) 147/71 (96) 150/62 (91) 150/72 (98) 144/87 (106) Pulse Ox 98 98 99 96 07/06/18 07/06/18 07/06/18 07/06/18 23:31 23:32 23:33 23:33 Pulse 101 74 Resp 18 18 B/P (MAP) 141/70 (93) Pulse Ox 95 97 97 O2 Delivery Nasal Cannula S/T O2 Flow Rate 3.00 07/06/18 07/07/18 07/07/18 07/07/18 23:46 00:02 00:05 00:16 Temp 98.2 98.2 Pulse 104 112 101 Resp 19 26 B/P (MAP) 164/81 (108) 167/61 (96) 138/64 144/120 (128) Pulse Ox 96 93 94 07/07/18 07/07/18 07/07/18 07/07/18 00:29 00:30 00:32 00:46 Temp 98.0 Pulse 74 104 105 99 Resp 18 39 23 32 B/P (MAP) 138/64 (88) 149/66 (93) Pulse Ox 97 93 95 96 O2 Delivery Room Air 07/07/18 07/07/18 07/07/18 07/07/18 00:55 01:01 01:16 01:31 Pulse 98 97 94 Resp 27 B/P (MAP) 156/80 (105) 151/73 (99) 134/54 (80) Pulse Ox 95 94 94 O2 Delivery Nasal Cannula O2 Flow Rate 3.00 07/07/18 07/07/18 07/07/18 07/07/18 01:46 01:47 02:01 02:16 Pulse 92 91 100 Resp 28 35 22 B/P (MAP) 132/63 (86) 129/61 (83) 149/67 (94) Pulse Ox 96 91 94 O2 Delivery Nasal Cannula O2 Flow Rate 3.00 07/07/18 07/07/18 07/07/18 07/07/18 02:31 02:46 02:51 03:01 Pulse 95 96 90 95 Resp 30 34 25 26 B/P (MAP) 130/63 (85) 143/72 (95) 142/74 (96) Pulse Ox 95 93 90 94 07/07/18 07/07/18 07/07/18 07/07/18 03:02 03:16 03:31 03:46 Pulse 90 91 90 94 Resp 25 27 26 34 B/P (MAP) 143/61 (88) 139/70 (93) 141/71 (94) Pulse Ox 90 94 97 95 07/07/18 07/07/18 07/07/18 07/07/18 04:01 04:16 04:31 04:46 Pulse 90 99 92 89 Resp 29 36 24 24 B/P (MAP) 131/63 (85) 144/70 (94) 140/66 (90) 137/70 (92) Pulse Ox 95 94 95 96 07/07/18 07/07/18 07/07/18 07/07/18 05:01 05:31 05:40 05:47 Temp 98.2 98.2 Pulse 91 97 92 Resp 25 32 B/P (MAP) 134/68 (90) 92/67 (75) 137/71 (93) Pulse Ox 96 92 95 O2 Delivery Nasal Cannula O2 Flow Rate 3.00 07/07/18 07/07/18 07/07/18 07/07/18 06:01 06:16 06:31 06:46 Pulse 88 91 94 100 Resp 26 26 22 24 B/P (MAP) 143/63 (89) 136/68 (90) 149/63 (91) 152/83 (106) Pulse Ox 99 99 99 96 07/07/18 07:01 Pulse 91 Resp 37 B/P (MAP) 133/74 (93) Pulse Ox 97 Laboratory Tests Test 07/06/18 00:00 07/06/18 18:28 07/06/18 18:40 07/06/18 18:48 Influenza Type A Antigen NEGATIVE Influenza B Immunofluorescence NEGATIVE Blood Gas Sample Site RT RADIAL ARTERY Blood Gas pH 7.350 Blood Gas PCO2 53.7 mmHg Blood Gas PO2 125.0 mmHg Blood Gas HCO3 29.0 mmol/L Blood Gas Base Excess 2.4 mmol/L [place] Test POSITIVE Arterial Blood Oxygen Saturation 97.8 % Deoxyhemoglobin 2.2 % Carboxyhemoglobin 0.9 % Methemoglobin 0.1 % Total Hemoglobin 12.9 % Total Oxygen Concentration 17.7 % Lactic Acid (Blood Gas) 0.7 mmol/1 Blood Gas Temperature 37 Oxygen Delivery Method (LAB) AEROSOL MASK FiO2 80.0 % Bicarbonate 30.6 mmol/L White Blood Count 8.5 10^3/uL Red Blood Count 4.30 10^6/uL Hemoglobin 12.5 g/dL Hematocrit 36.8 % Mean Corpuscular Volume 85.6 fL Mean Corpuscular Hemoglobin 29.1 pg Mean Corpuscular Hemoglobin Concent 34.0 g/dL Red Cell Distribution Width 13.2 % Platelet Count 286 10^3/uL Mean Platelet Volume 9.0 fL Neutrophils (%) (Auto) 75.8 % Lymphocytes (%) (Auto) 13.4 % Monocytes (%) (Auto) 9.8 % Neutrophils # (Auto) 6.4 10^3/uL Lymphocytes # (Auto) 1.1 10^3/uL Monocytes # (Auto) 0.8 10^3/uL Absolute Immature Granulocyte (auto 0.02 10^3 u/L Immature Granulocytes % 0.20 % Eosinophils % 0.6 % Basophils % 0.2 % Basophils # 0.0 10^3/uL Eosinophil Count 0.1 10^3/uL Sodium Level 126 mmol/L Potassium Level 4.6 mmol/L Chloride Level 88.0 mmol/L Carbon Dioxide Level 29.1 mmol/L Anion Gap 13.5 Blood Urea Nitrogen 11 mg/dL Creatinine 0.72 mg/dL Estimated GFR () 97.5 BUN/Creatinine Ratio 15.0 Glucose Level 129 mg/dL Calcium Level 9.5 mg/dL Total Bilirubin 0.5 mg/dL Aspartate Amino Transf (AST/SGOT) 30 U/L Alanine Aminotransferase (ALT/SGPT) 33 U/L Alkaline Phosphatase 117 U/L Troponin I < 0.02 ng/mL Pro-B-Type Natriuretic Peptide 170 pg/mL Total Protein 7.8 g/dL Albumin 3.6 g/dL Globulin 4.2 Magnesium Level 1.3 mg/dL Thyroid Stimulating Hormone (TSH) 1.482 mIU/mL Test 07/06/18 19:26 07/07/18 00:35 07/07/18 06:10 07/07/18 06:30 Differential Total Cells Counted 100 #CELLS Segmented Neutrophils 77 % Band Neutrophils % Lymphocytes 14 % Monocytes 9 % Platelet Morphology NORMAL Troponin I < 0.02 ng/mL < 0.02 ng/mL Bedside Glucose 131 White Blood Count 7.1 10^3/uL Red Blood Count 4.08 10^6/uL Hemoglobin 11.9 g/dL Hematocrit 35.4 % Mean Corpuscular Volume 86.8 fL Mean Corpuscular Hemoglobin 29.2 pg Mean Corpuscular Hemoglobin Concent 33.6 g/dL Red Cell Distribution Width 13.1 % Platelet Count 275 10^3/uL Mean Platelet Volume 9.0 fL Neutrophils (%) (Auto) 81.3 % Lymphocytes (%) (Auto) 12.4 % Monocytes (%) (Auto) 5.4 % Neutrophils # (Auto) 5.8 10^3/uL Lymphocytes # (Auto) 0.9 10^3/uL Monocytes # (Auto) 0.4 10^3/uL Absolute Immature Granulocyte (auto 0.06 10^3 u/L Immature Granulocytes % 0.80 % Eosinophils % 0.0 % Basophils % 0.1 % Basophils # 0.0 10^3/uL Eosinophil Count 0.0 10^3/uL Sodium Level 129 mmol/L Potassium Level 5.0 mmol/L Chloride Level 91.0 mmol/L Carbon Dioxide Level 31.6 mmol/L Anion Gap 11.4 Blood Urea Nitrogen 10 mg/dL Creatinine 0.76 mg/dL Estimated GFR () 91.6 BUN/Creatinine Ratio 13.0 Glucose Level 138 mg/dL Calcium Level 9.3 mg/dL Total Bilirubin 0.4 mg/dL Aspartate Amino Transf (AST/SGOT) 25 U/L Alanine Aminotransferase (ALT/SGPT) 31 U/L Alkaline Phosphatase 114 U/L Total Protein 7.4 g/dL Albumin 3.2 g/dL Globulin 4.2 Current Medications Medications (Trade) Dose Ordered Sig/Sravanthi PRN Reason Start Time Stop Time Status Last Admin Albuterol Sulfate (Ventolin) 2.5 mg RTQ2 PRN SHORTNESS OF BREATH 07/06/18 20:00 08/05/18 19:59 Albuterol/ Ipratropium (Duoneb 0.5 Mg-3 Mg/3 ml Soln) 3 ml RTQ6 07/07/18 03:00 08/06/18 02:59 07/07/18 02:50 Atorvastatin Calcium (Lipitor) 20 mg HS 07/07/18 21:00 08/06/18 20:59 Azithromycin 500 mg/Sodium Chloride 250 ml @ 175 mls/hr Q24HRS 07/07/18 08:00 08/06/18 07:59 Ceftriaxone Sodium 1000 mg/ Sodium Chloride 100 ml @ 100 mls/hr Q24HRS 07/07/18 09:00 08/06/18 08:59 Clopidogrel Bisulfate (Plavix) 75 mg DAILY24 07/06/18 23:30 08/05/18 23:29 07/07/18 00:04 Dextrose (Dextrose 50%-Water Syringe) 25 ml STAT PRN HYPOGLYCEMIA 07/06/18 23:30 08/05/18 23:29 Enoxaparin Sodium (Lovenox) 40 mg Q24HRS 07/06/18 23:30 08/05/18 23:29 07/07/18 00:04 Hydralazine HCl (Apresoline) 10 mg Q4HR PRN HYPERTENSION 07/06/18 23:30 08/05/18 23:29 Insulin Human Lispro (Humalog) Give when food is in front... ACHS 07/07/18 07:30 08/06/18 07:29 Ipratropium [place] (Atrovent) 0.5 mg RTQ2 PRN SHORTNESS OF BREATH 07/06/18 20:00 08/05/18 19:59 Levothyroxine Sodium (Synthroid) 75 mcg ACB 07/08/18 06:30 08/05/18 23:29 Losartan Potassium (Cozaar) 25 mg DAILY24 07/06/18 23:30 08/05/18 23:29 07/07/18 00:05 Methylprednisolone Sodium Succinate (Solu-Medrol) 40 mg Q8HR 07/07/18 06:00 08/06/18 05:59 07/07/18 06:07 Ondansetron HCl (Zofran) 4 mg Q4H PRN NAUSEA / VOMITING 07/06/18 23:00 08/05/18 22:59 Pantoprazole Sodium (Protonix) 40 mg DAILY 07/07/18 09:00 08/06/18 08:59 Course Sepsis Screening Results: Posi: POSITIVE Sepsis Qualifier/Stage: SEPSIS RISK Duration or Total Time Spent w: 60 Vitals & review Data Vital Sign - Last 24 Hours 07/06/18 07/06/18 07/06/18 07/06/18 18:47 18:51 18:51 18:56 Temp 98.4 98.0 98.0 98.4 98.0 98.0 Pulse 121 120 102 102 Resp 29 72 28 38 B/P (MAP) 152/66 (94) Pulse Ox 95 60 60 O2 Delivery S/T Room Air Room Air FiO2 45 07/06/18 07/06/18 07/06/18 07/06/18 19:00 19:11 19:11 19:13 Pulse 104 102 102 112 Resp 20 38 38 28 B/P (MAP) 159/68 (98) Pulse Ox 98 95 95 95 O2 Delivery Bi Pap Bi-pap FiO2 45 07/06/18 07/06/18 07/06/18 07/06/18 20:00 21:00 22:16 22:30 Temp 97.8 97.8 Pulse 74 82 Resp 18 24 B/P (MAP) 174/78 (110) 162/82 (108) 157/84 (108) Pulse Ox 97 97 98 O2 Delivery Bi Pap Bi Pap Nasal Cannula O2 Flow Rate 3.00 07/06/18 07/06/18 07/06/18 07/06/18 22:31 22:46 23:01 23:16 Pulse 104 101 102 103 Resp 38 28 B/P (MAP) 147/71 (96) 150/62 (91) 150/72 (98) 144/87 (106) Pulse Ox 98 98 99 96 07/06/18 07/06/18 07/06/18 07/06/18 23:31 23:32 23:33 23:33 Pulse 101 74 Resp 18 18 B/P (MAP) 141/70 (93) Pulse Ox 95 97 97 O2 Delivery Nasal Cannula S/T O2 Flow Rate 3.00 07/06/18 07/07/18 07/07/18 07/07/18 23:46 00:02 00:05 00:16 Temp 98.2 98.2 Pulse 104 112 101 Resp 19 26 B/P (MAP) 164/81 (108) 167/61 (96) 138/64 144/120 (128) Pulse Ox 96 93 94 07/07/18 07/07/18 07/07/18 07/07/18 00:29 00:30 00:32 00:46 Temp 98.0 Pulse 74 104 105 99 Resp 39 23 32 B/P (MAP) 138/64 (88) 149/66 (93) Pulse Ox 97 93 95 96 O2 Delivery Room Air 07/07/18 07/07/18 07/07/18 07/07/18 00:55 01:01 01:16 01:31 Pulse 98 97 94 Resp 27 B/P (MAP) 156/80 (105) 151/73 (99) 134/54 (80) Pulse Ox 95 94 94 O2 Delivery Nasal Cannula O2 Flow Rate 3.00 07/07/18 07/07/18 07/07/18 07/07/18 01:46 01:47 02:01 02:16 Pulse 92 91 100 Resp 35 22 B/P (MAP) 132/63 (86) 129/61 (83) 149/67 (94) Pulse Ox 96 91 94 O2 Delivery Nasal Cannula O2 Flow Rate 3.00 07/07/18 07/07/18 07/07/18 07/07/18 02:31 02:46 02:51 03:01 Pulse 95 96 90 95 Resp 30 34 25 26 B/P (MAP) 130/63 (85) 143/72 (95) 142/74 (96) Pulse Ox 95 93 90 94 07/07/18 07/07/18 07/07/18 07/07/18 03:02 03:16 03:31 03:46 Pulse 90 91 90 94 Resp 25 27 26 34 B/P (MAP) 143/61 (88) 139/70 (93) 141/71 (94) Pulse Ox 90 94 97 95 07/07/18 07/07/18 07/07/18 07/07/18 04:01 04:16 04:31 04:46 Pulse 90 99 92 89 Resp 29 36 24 24 B/P (MAP) 131/63 (85) 144/70 (94) 140/66 (90) 137/70 (92) Pulse Ox 95 94 95 96 07/07/18 07/07/18 07/07/18 07/07/18 05:01 05:31 05:40 05:47 Temp 98.2 98.2 Pulse 91 97 92 Resp 25 32 B/P (MAP) 134/68 (90) 92/67 (75) 137/71 (93) Pulse Ox 96 92 95 O2 Delivery Nasal Cannula O2 Flow Rate 3.00 07/07/18 07/07/18 07/07/18 07/07/18 06:01 06:16 06:31 06:46 Pulse 88 91 94 100 Resp 26 26 22 24 B/P (MAP) 143/63 (89) 136/68 (90) 149/63 (91) 152/83 (106) Pulse Ox 99 99 99 96 07/07/18 07:01 Pulse 91 Resp 37 B/P (MAP) 133/74 (93) Pulse Ox 97 Laboratory Tests Test 07/06/18 00:00 07/06/18 18:28 07/06/18 18:40 07/06/18 18:48 Influenza Type A Antigen NEGATIVE Influenza B Immunofluorescence NEGATIVE Blood Gas Sample Site RT RADIAL ARTERY Blood Gas pH 7.350 Blood Gas PCO2 53.7 mmHg Blood Gas PO2 125.0 mmHg Blood Gas HCO3 29.0 mmol/L Blood Gas Base Excess 2.4 mmol/L [place] Test POSITIVE Arterial Blood Oxygen Saturation 97.8 % Deoxyhemoglobin 2.2 % Carboxyhemoglobin 0.9 % Methemoglobin 0.1 % Total Hemoglobin 12.9 % Total Oxygen Concentration 17.7 % Lactic Acid (Blood Gas) 0.7 mmol/1 Blood Gas Temperature 37 Oxygen Delivery Method (LAB) AEROSOL MASK FiO2 80.0 % Bicarbonate 30.6 mmol/L White Blood Count 8.5 10^3/uL Red Blood Count 4.30 10^6/uL Hemoglobin 12.5 g/dL Hematocrit 36.8 % Mean Corpuscular Volume 85.6 fL Mean Corpuscular Hemoglobin 29.1 pg Mean Corpuscular Hemoglobin Concent 34.0 g/dL Red Cell Distribution Width 13.2 % Platelet Count 286 10^3/uL Mean Platelet Volume 9.0 fL Neutrophils (%) (Auto) 75.8 % Lymphocytes (%) (Auto) 13.4 % Monocytes (%) (Auto) 9.8 % Neutrophils # (Auto) 6.4 10^3/uL Lymphocytes # (Auto) 1.1 10^3/uL Monocytes # (Auto) 0.8 10^3/uL Absolute Immature Granulocyte (auto 0.02 10^3 u/L Immature Granulocytes % 0.20 % Eosinophils % 0.6 % Basophils % 0.2 % Basophils # 0.0 10^3/uL Eosinophil Count 0.1 10^3/uL Sodium Level 126 mmol/L Potassium Level 4.6 mmol/L Chloride Level 88.0 mmol/L Carbon Dioxide Level 29.1 mmol/L Anion Gap 13.5 Blood Urea Nitrogen 11 mg/dL Creatinine 0.72 mg/dL Estimated GFR () 97.5 BUN/Creatinine Ratio 15.0 Glucose Level 129 mg/dL Calcium Level 9.5 mg/dL Total Bilirubin 0.5 mg/dL Aspartate Amino Transf (AST/SGOT) 30 U/L Alanine Aminotransferase (ALT/SGPT) 33 U/L Alkaline Phosphatase 117 U/L Troponin I < 0.02 ng/mL Pro-B-Type Natriuretic Peptide 170 pg/mL Total Protein 7.8 g/dL Albumin 3.6 g/dL Globulin 4.2 Magnesium Level 1.3 mg/dL Thyroid Stimulating Hormone (TSH) 1.482 mIU/mL Test 07/06/18 19:26 07/07/18 00:35 07/07/18 06:10 07/07/18 06:30 Differential Total Cells Counted 100 #CELLS Segmented Neutrophils 77 % Band Neutrophils % Lymphocytes 14 % Monocytes 9 % Platelet Morphology NORMAL Troponin I < 0.02 ng/mL < 0.02 ng/mL Bedside Glucose 131 White Blood Count 7.1 10^3/uL Red Blood Count 4.08 10^6/uL Hemoglobin 11.9 g/dL Hematocrit 35.4 % Mean Corpuscular Volume 86.8 fL Mean Corpuscular Hemoglobin 29.2 pg Mean Corpuscular Hemoglobin Concent 33.6 g/dL Red Cell Distribution Width 13.1 % Platelet Count 275 10^3/uL Mean Platelet Volume 9.0 fL Neutrophils (%) (Auto) 81.3 % Lymphocytes (%) (Auto) 12.4 % Monocytes (%) (Auto) 5.4 % Neutrophils # (Auto) 5.8 10^3/uL Lymphocytes # (Auto) 0.9 10^3/uL Monocytes # (Auto) 0.4 10^3/uL Absolute Immature Granulocyte (auto 0.06 10^3 u/L Immature Granulocytes % 0.80 % Eosinophils % 0.0 % Basophils % 0.1 % Basophils # 0.0 10^3/uL Eosinophil Count 0.0 10^3/uL Sodium Level 129 mmol/L Potassium Level 5.0 mmol/L Chloride Level 91.0 mmol/L Carbon Dioxide Level 31.6 mmol/L Anion Gap 11.4 Blood Urea Nitrogen 10 mg/dL Creatinine 0.76 mg/dL Estimated GFR () 91.6 BUN/Creatinine Ratio 13.0 Glucose Level 138 mg/dL Calcium Level 9.3 mg/dL Total Bilirubin 0.4 mg/dL Aspartate Amino Transf (AST/SGOT) 25 U/L Alanine Aminotransferase (ALT/SGPT) 31 U/L Alkaline Phosphatase 114 U/L Total Protein 7.4 g/dL Albumin 3.2 g/dL Globulin 4.2 Current Medications Medications (Trade) Dose Ordered Sig/Sravanthi PRN Reason Start Time Stop Time Status Last Admin Albuterol Sulfate (Ventolin) 2.5 mg RTQ2 PRN SHORTNESS OF BREATH 07/06/18 20:00 08/05/18 19:59 Albuterol/ Ipratropium (Duoneb 0.5 Mg-3 Mg/3 ml Soln) 3 ml RTQ6 07/07/18 03:00 08/06/18 02:59 07/07/18 02:50 Atorvastatin Calcium (Lipitor) 20 mg HS 07/07/18 21:00 08/06/18 20:59 Azithromycin 500 mg/Sodium Chloride 250 ml @ 175 mls/hr Q24HRS 07/07/18 08:00 08/06/18 07:59 Ceftriaxone Sodium 1000 mg/ Sodium Chloride 100 ml @ 100 mls/hr Q24HRS 07/07/18 09:00 08/06/18 08:59 Clopidogrel Bisulfate (Plavix) 75 mg DAILY24 07/06/18 23:30 08/05/18 23:29 07/07/18 00:04 Dextrose (Dextrose 50%-Water Syringe) 25 ml STAT PRN HYPOGLYCEMIA 07/06/18 23:30 08/05/18 23:29 Enoxaparin Sodium (Lovenox) 40 mg Q24HRS 07/06/18 23:30 08/05/18 23:29 07/07/18 00:04 Hydralazine HCl (Apresoline) 10 mg Q4HR PRN HYPERTENSION 07/06/18 23:30 08/05/18 23:29 Insulin Human Lispro (Humalog) Give when food is in front... ACHS 07/07/18 07:30 08/06/18 07:29 Ipratropium [place] (Atrovent) 0.5 mg RTQ2 PRN SHORTNESS OF BREATH 07/06/18 20:00 08/05/18 19:59 Levothyroxine Sodium (Synthroid) 75 mcg ACB 07/08/18 06:30 08/05/18 23:29 Losartan Potassium (Cozaar) 25 mg DAILY24 07/06/18 23:30 08/05/18 23:29 07/07/18 00:05 Methylprednisolone Sodium Succinate (Solu-Medrol) 40 mg Q8HR 07/07/18 06:00 08/06/18 05:59 07/07/18 06:07 Ondansetron HCl (Zofran) 4 mg Q4H PRN NAUSEA / VOMITING 07/06/18 23:00 08/05/18 22:59 Pantoprazole Sodium (Protonix) 40 mg DAILY 07/07/18 09:00 08/06/18 08:59 Sepsis Infection Criteria Pres: Suspected Infection LEVEL 1 SEPSIS INFECTION CRITE: ABX Therapy, Cough/Shortness of Breath LEVEL 2-SIRS (LIST ALL THAT AP: None/Not assessed Cardiovascular Evidence: Not Assessed or None Hematologic Evidence: None/Not assessed Hepatic Evidence: None/Not assessed Metabolic Evidence: None/Not assessed Neurological Evidence: None/Not assessed Respiratory Evidence: Acute Resp failure, Need for O2 to keep>90%, O2 SAT<90room air Renal Evidence: None/Not assessed O2 Sat by Pulse Oximetry: 98 Oxygen Flow Rate: 2.00 Plan Discharge Date: July 10, 2018 Dicharge DX: Hypoxic/Hypercapnic Respiratory failure, COPD exacerbation, Hyponatremia Discharge Disposition: Stable Plan ok to d/c to home self care on Home O2 medications: per med rec list Diet: Diabetic Activity: as tolerated F/U with PCP/Sports Physiologist within 1-2 weeks Return to care for dyspnea, wheezing, fever, or any other concerning symptoms CURLY LEW MD July 10, 2018 09:10
[2018-07-10] MEDS: ROCEPHIN 1,000 MG in NS 100ML 100 ML IV SCH (09:37)
[2018-07-10 11:00] VITALS: BP 159/80
--- NOTE | 2018-07-10 11:05 | NUR ---
DISCHARGED Pt DISCHARGED TO HOME FROM THE HOSPITAL, EDUCATED Pt AND FAMILY ON OXYGEN USE, ITS SAFETY, PRESCRIPTIONS, AND ON DISCHARGE PACKET. THEY VERBALIZED UNDERSTANDING. ASSISTED Pt IN WC TO MAIN EXIT BY HOUSE SUP MS AMARILIS RODRÍGUEZ, ACCOMPANIED BY HR FAMILY MEMBER. IV PORT TO RIGHT CHEST WAS FLUSHED WITH 5 ML HEPARIN AND NS 10 ML, DC EXTENSION AND COVERED WITH BANDAID, IV DC.
== END 2018-07-10 11:03 | disposition home or self-care (01) | DRG 140 ==
LOC: ER 18:18 → ICU 19:50 → MS 07-07 14:25 → EDPENDDISTM 07-10 11:05 → EDPENDDISDT 07-10 21:24
PROVIDERS: ADMIT Family Medicine; ATTEND Family Medicine
PROC: 5A09357 Assistance with Respiratory Ventilation, Less than 24 Consecutive Hours, Continuous Positive Airway Pressure (ICD-10-PCS; principal; 2018-07-06)
DX: J44.1 Chronic obstructive pulmonary disease with (acute) exacerbation (principal); J96.01 Acute respiratory failure with hypoxia; J96.02 Acute respiratory failure with hypercapnia; E03.9 Hypothyroidism, unspecified; E11.9 Type 2 diabetes mellitus without complications; E78.5 Hyperlipidemia, unspecified; E87.1 Hypo-osmolality and hyponatremia; E87.5 Hyperkalemia; Z60.2 Problems related to living alone; G47.00 Insomnia, unspecified; I10 Essential (primary) hypertension; Z85.038 Personal history of other malignant neoplasm of large intestine; Z86.73 Personal history of transient ischemic attack (TIA), and cerebral infarction without residual deficits; Z79.84 Long term (current) use of oral hypoglycemic drugs; Z79.899 Other long term (current) drug therapy; Z87.891 Personal history of nicotine dependence; Z88.6 Allergy status to analgesic agent
CPT/HCPCS: 36415; 71045; 71275; 80048; 80053; 82803; 82948; 83735; 83880; 84443; 84484; 85025; 87040; 87804; 93005; 94640; 94660; 99291; G0378; J0456; J0696; J1100; J1642; J1650; J1815; J1956; J2920; J3475; J3490; J7030; J7050; J7120; J7620; Q9965